=== PATIENT | female | born 1950 | race Caucasian/White ===

== ENCOUNTER 2019-05-30 13:05 | Outpatient (RCR) | payer MEDICARE, MEDICAID, SELFPAY | END 2019-06-15 23:59 | disposition home or self-care (01) | LOC: SPT 13:05 | PROVIDERS: Family Provider Family Medicine; PCP Family Medicine; Referring Provider Family Medicine; Visit Provider Family Medicine | DX: M54.5 Low back pain (principal) | CPT/HCPCS: 97032; 97110; 97161 ==

== ENCOUNTER → 2020-04-23 13:25 | Outpatient (BNVA) | payer MEDICARE, MEDICAID, SELFPAY | PROVIDERS: Family Provider Family Medicine; PCP Family Medicine; Visit Provider Internal Medicine | DX: M10.9 Gout, unspecified (principal); M25.571 Pain in right ankle and joints of right foot; Z11.59 Encounter for screening for other viral diseases; Z79.899 Other long term (current) drug therapy; N18.9 Chronic kidney disease, unspecified; M25.50 Pain in unspecified joint; M85.88 Other specified disorders of bone density and structure, other site; R60.0 Localized edema; M77.31 Calcaneal spur, right foot; M20.11 Hallux valgus (acquired), right foot; D86.9 Sarcoidosis, unspecified | CPT/HCPCS: 36415; 73610; 73620; 80053; 81001; 82306; 82310; 82728; 83540; 83735; 83970; 84100; 84443; 84550; 85025; 85651; 86140; 86431; 86704; 86803; 86812; 87340; 99204; 99205 ==

== ENCOUNTER 2020-04-23 14:21 | Outpatient (CLI) | payer MEDICARE, MEDICAID, SELFPAY ==
--- NOTE | 2020-04-23 14:35 | XR_ITS ---
WS: [id number] ANKLE RIGHT TECHNIQUE: 3 views of the right ankle CLINICAL INFORMATION: M10.9 - Gout, unspecified COMPARISON: None. FINDINGS: Diffuse prominent soft tissue edema. Osteopenia. Normal medial and lateral malleolus. Normal ankle mo rtise. No acute fractures. Plantar and Achilles calcaneal spurring. Vascular calcification. XR/XR ankle RT min 3V* [id number] IMPRESSION: 1. Prominent soft tissue edema. 2. Normal ankle mortise. No acute fractures. 3. Normal medial and lateral malleolus. 4. Vascular calcification. 5. Plantar and Achilles calcaneal spurring.
--- NOTE | 2020-04-23 14:35 | XR_ITS ---
WS: [id number] FOOT RIGHT TECHNIQUE: 2 views of the right foot CLINICAL INFORMATION: M25.50 - Pain in unspecified joint COMPARISON: None. FINDINGS: Osteopenia. Diffuse soft tissue edema. Vascular calcification. Plantar calcaneal spurring. Calcaneal spurring at the Achilles insertion. Hammertoe deformities. Mild IP joint narrowing. Normal metatarsal s. Subchondral cystic change involving the head of the first metatarsal with mild hallux valgus XR/XR foot RT 2V [id number] IMPRESSION: 1. Osteopenia with diffuse soft tissue edema. 2. Plantar and Achilles calcaneal spurring 3. Subchondral cystic change first metatarsal head with mild hallux valgus.
== END 2020-04-23 14:22 | disposition home or self-care (01) ==
LOC: RADWPI 14:27
PROVIDERS: PCP Family Medicine; Visit Provider Internal Medicine
DX: M10.9 Gout, unspecified (principal); M25.50 Pain in unspecified joint; M85.88 Other specified disorders of bone density and structure, other site; R60.0 Localized edema; M25.571 Pain in right ankle and joints of right foot; M77.31 Calcaneal spur, right foot; M20.11 Hallux valgus (acquired), right foot; D86.9 Sarcoidosis, unspecified
CPT/HCPCS: 73610; 73620; 80053; 81001; 81003; 82306; 82310; 82728; 83540; 83735; 83970; 84100; 84443; 84550; 85025; 85651; 86140; 86431; 86704; 86803; 86812; 87340

== ENCOUNTER 2020-08-30 07:39 | Emergency (ER) | payer MEDICARE, MEDICAID, SELFPAY ==
[2020-08-30 07:39] VITALS: BP 124/77; PULSE 103; RESP 18; O2SAT 93; BMI 38.7
--- NOTE | 2020-08-30 07:45 | W.ED.GENADLT ---
HPI - General Adult General: Chief complaint: Extremity Problem,Nontraumatic Stated complaint: SAVAGE FEET SWELLING Time Seen by Provider: 08/30/20 07:45 History of Present Illness: HPI narrative: 70-year-old female presents with bilateral foot pain. Patient reports that she was seen about a week ago due to gout. That she was recently had increase of her allopurinol from 100 mg a day to 200 mg a day. He presents today because she reports it is difficult to stand because of pain in her feet. Patient reports for the last 4 days has been getting worse. She has not seen her primary care provider since it started increasing in pain. Patient has a history of recurrent gout. Patient denies any other systemic complaint Associated symptoms: Deny chest pain, dyspnea, nausea, palpitations or vomiting Review of Systems Const: Denies: fever(s) or chills ENMT: Denies: throat pain Card: Denies: chest pain or palpitations Resp: Denies: dyspnea or productive cough GI: Denies: abdominal pain, nausea or vomiting : Denies: difficulty voiding Musc: Reports: joint warmth and other (see hpi) Skin/Breast: Reports: other (see hpi ) PFSH ED PFSH: Family History Other CAD (coronary artery disease) Diabetes Social History Smoking and tobacco status: never smoked Alcohol intake: never History of recent travel: No Physical Exam Const: COMMON NORMALS: patient oriented x3 and alert GENERAL APPEARANCE: cooperative NUTRITIONAL APPEARANCE: overweight HENMT: COMMON NORMALS: normocephalic and moist oral mucous membranes HEAD & SCALP: normocephalic Resp: COMMON NORMALS: normal respiratory effort, No retractions, No use of accessory muscles and clear to auscultation bilaterally EFFORT & INSPECTION: Yes able to speak in complete sentences AUSCULTATION: clear to auscultation bilaterally Cardio: COMMON NORMALS: regular rate and regular rhythm RATE: regular rate RHYTHM: regular rhythm GI: COMMON NORMALS: Soft to palpation and non-tender PALPATION: Yes Soft to palpation Extremity: NARRATIVE EXTREMITY EXAM: Mild swelling and erythema on the bilateral foot mainly near the great toes consistent with gout Neuro: COMMON NORMALS: patient oriented x3 SENSORIUM/ORIENTATION: Yes alert Psych: COMMON NORMALS: mental status grossly normal and normal affect Skin: NARRATIVE SKIN EXAM: Mild erythema on the bilateral feet mainly on the medial aspect of the great toe Course Vital Signs: Vital signs: Vital Signs Temperature 97.8 F 08/30/20 09:26 Pulse Rate 68 08/30/20 09:26 Respiratory Rate 18 08/30/20 09:26 Blood Pressure 152/91 08/30/20 09:26 Pulse Oximetry 95 08/30/20 09:26 MDM - General Adult MDM Narrative: Medical decision making narrative: Patient symptoms improved significantly following the colchicine. I will discharge her with ibuprofen 800 mg 3 times a day along with prednisone x3 days. I discussed with her, the decrease in her hemoglobin level with her chronic anemia and need to follow-up outpatient for both further evaluation of her anemia and recheck of her gout. Patient stable and will be discharged home Lab Data: Attestation: I reviewed the patient's lab results. Labs: Lab Results 08/30/20 08/30/20 Range/Units 08:05 08:05 WBC 7.6 (4.0-10.0) 10^3/ uL RBC 2.82 L (4.1-5.3) 10^6/u L Hgb 7.4 L (11.5-15.3) g/dL Hct 25.3 L (37.0-47.0) % MCV 89.7 (81-99) fL MCH 26.2 L (28.0-34.0) pg MCHC 29.2 L (30.0-36.0) g/dL RDW 19.3 H (12.1-15.1) % Plt Count 275 (130-400) 10^3/c mm MPV 9.4 (7.4-10.4) fL Neut % (Auto) 72.4 % Lymph % (Auto) 14.6 % [place] % (Auto) 11.0 % Eos % (Auto) 1.0 % Baso % (Auto) 0.5 % Neut # (Auto) 5.51 (1.8-7.7) 10^3/u L Lymph # (Auto) 1.1 (0.8-4.8) 10^3/u L [place] # (Auto) 0.8 (0.2-0.9) 10^3/u L Eos # (Auto) 0.1 (0.0-0.8) 10^3/u L Baso # (Auto) 0.0 (0.0-0.1) 10^3/u L Nucleated RBC % (a uto) 0 % Nucleated RBCs # 0.0 /100WBC Sodium 140 (136-145) mmol/L Potassium 4.4 (3.5-5.1) mmol/L Chloride 105 (98-107) mmol/L Carbon Dioxide 27 (22-29) mmol/L Anion Gap 12.4 (5-19) BUN 31 H (8-23) mg/dL Creatinine 1.1 H (0.5-0.9) mg/dL GFR Calculation Not Reportable Glucose 126 H (65-115) mg/dL Calculated Osmolal ity 298 H (285-295) mOsm/k g Uric Acid 5.1 (2.4-5.7) mg/dL Calcium 7.9 L (8.5-10.5) mg/dL Discharge Plan Discharge Patient Disposition: Home Clinical Impression: Gout Qualifiers: Gout site: toe Gout etiology: unspecified cause Chronicity: chronic Laterality: unspecified laterality Presence of tophus: without tophus Qualified Code(s): M1A.9XX0 - Chronic gout, unspecified, without tophus (tophi) Anemia Qualifiers: Anemia type: unspecified type Qualified Code(s): D64.9 - Anemia, unspecified Condition: Stable Prescriptions: New prednisone 20 mg tablet 40 mg PO DAILY 3 Days Qty: 6 RF: 0 ibuprofen 800 mg tablet 800 mg PO TID Qty: 10 RF: 0 No Action gabapentin 300 mg capsule 300 mg PO TID RF: 0 buspirone 15 mg tablet 15 mg PO DAILY RF: 0 metoprolol succinate 100 mg tablet extended release 24 hr 100 mg PO DAILY RF: 0 lisinopril 40 mg tablet 40 mg PO DAILY RF: 0 lovastatin 20 mg tablet 20 mg PO DAILY RF: 0 aspirin [Adult Aspirin Regimen] 81 mg tablet,delayed release (DR/EC) 81 mg PO DAILY RF: 0 clopidogrel 75 mg tablet 75 mg PO DAILY RF: 0 prednisone 5 mg tablet 5 mg PO DAILY Qty: 30 RF: 0 allopurinol 100 mg tablet 200 mg PO DAILY RF: 0 prednisone 5 mg tablet 5 mg PO DAILY Qty: 30 RF: 0 allopurinol 100 mg tablet 200 mg PO DAILY Qty: 60 RF: 2 colchicine [Colcrys] 0.6 mg tablet See Rx Instructions PO DAILY Qty: 60 RF: 0 cholecalciferol (vitamin D3) 1,250 mcg (50,000 unit) capsule 50,000 unit PO .qweek Qty: 14 RF: 0 Discharge Orders: Discharge ED (Routine); Ordered 08/30/20 Ordered By: Shelton Myles Referrals: Scar Gomez [Primary Care Provider] - Discharge Diet: Usual diet Discharge Activity: Resume usual activity Patient Instructions: Gout, Anemia (ED), Opioid Safety Activity Restrictions/Additional Instructions: Follow-up with your primary care provider in 2 to 3 days for recheck of your gout along with further evaluation of your anemia Coding Level of Care Code ED Supervisor [employer] for Chg Fwd Exam Detailed
[2020-08-30 07:46] VITALS: BP 124/77; PULSE 100; PULSE 106; RESP 20; O2SAT 92
[2020-08-30] MEDS: colchicine 0.6 mg Tablet 1.2 MG PO (08:06)
[2020-08-30] MEDS: predniSONE 20 mg Tablet 40 MG PO (08:06)
[2020-08-30 08:14] LABS: Basophils % 0.5 %; Eosinophils # 0.1 10^3/uL (0.0-0.8); Hematocrit 25.3 % (37.0-47.0); Hemoglobin 7.4 g/dL (11.5-15.3); Lymphocytes # 1.1 10^3/uL (0.8-4.8); Lymphocytes % 14.6 %; Mean Corpuscular HGB Conc 29.2 g/dL (30.0-36.0); Mean Corpuscular Hemoglobin 26.2 pg (28.0-34.0); Mean Corpuscular Volume 89.7 fL (81-99); Mean Platelet Volume 9.4 fL (7.4-10.4); Monocytes # 0.8 10^3/uL (0.2-0.9); Neutrophils # 5.51 10^3/uL (1.8-7.7); Neutrophils % 72.4 %; Nucleated Red Blood Cells % 0 %; Platelet Count 275 10^3/cmm (130-400); Red Blood Count 2.82 10^6/uL (4.1-5.3); Red Cell Distribution Width 19.3 % (12.1-15.1); White Blood Count 7.6 10^3/uL (4.0-10.0)
[2020-08-30 08:41] LABS: Anion Gap 12.4 (5-19); Blood Urea Nitrogen 31 mg/dL (8-23); Calcium 7.9 mg/dL (8.5-10.5); Carbon Dioxide 27 mmol/L (22-29); Chloride 105 mmol/L (98-107); Glucose 126 mg/dL (65-115); Osmolality Calculated 298 mOsm/kg (285-295); Potassium 4.4 mmol/L (3.5-5.1); Sodium 140 mmol/L (136-145); Uric Acid 5.1 mg/dL (2.4-5.7)
[2020-08-30] MEDS: ketorolac 30 mg/mL INJ 15 MG IVP (09:00)
[2020-08-30 09:26] VITALS: BP 152/91; PULSE 68; RESP 18; TEMP 36.6; O2SAT 95
== END 2020-08-30 09:27 | disposition home or self-care (01) ==
PROVIDERS: Emergency Provider Student in an Organized Health Care Education/Training Program; PCP Family Medicine
DX: M1A.9XX0 Chronic gout, unspecified, without tophus (tophi) (principal); D64.9 Anemia, unspecified; Z79.82 Long term (current) use of aspirin; Z79.02 Long term (current) use of antithrombotics/antiplatelets
CPT/HCPCS: 80048; 84550; 85025; 96374; 99283; J1885; J7512

== ENCOUNTER 2020-11-28 13:09 | Inpatient (IN) | payer MEDICARE, MEDICAID, SELFPAY ==
[2020-11-28] VITALS (9 sets, daily range): BP systolic 118–149; BP diastolic 76–102; PULSE 7–104; RESP 17–24; TEMP 36.7; O2SAT 87–98; BMI 38.7
--- NOTE | 2020-11-28 13:35 | ED_ITS ---
HPI - COVID General: Chief Complaint: COVID symptoms Stated Complaint: COVID +; RESP DISTRESS Time Seen by Provider: 11/28/20 13:13 Source: patient and RN notes reviewed Mode of arrival: ambulatory Limitations: no limitations Triage information: Has fever, cough or shortness of breath . Exposure to COVID + person last 14 days History of Present Illness: HPI Narrative: Patient is a 70-year-old female who was diagnosed with COVID-19 4 days ago. Symptoms started 3 days before that, so she has been symptomatic for about 1 week. Symptoms include cough, shortness of breath, chills and body aches. She denies any fever. She was seen at another emergency department 4 days ago and was discharged home on steroids. She says she felt better for about a day but then got significantly worse thereafter. When EMS arrived the patient was hypoxic with oxygen saturation in the mid 80s. She was given beta agonist breathing treatments, and placed on 4 L of oxygen via nasal cannula to bring her oxygen saturation to around 92 to 94% complaint: known COVID positive Prior covid testing: yes, results known COVID 19 common symptoms: positive chills, cough, productive cough, dyspnea, fatigue, body aches and nasal congestion; negative fever(s), non-productive cough, headache(s), loss of sense of smell and/or taste, throat pain, vomiting, diarrhea or chest tightness COVID 19 other sytmptoms: positive requiring oxygen and respiratory distress; negative chest pressure, chest pain, pleuritic pain, cyanosis, lethargy, confusion, new neurological complaints or other concerning symptoms Onset (ago): week(s) (1) Severity: severe Pertinent comorbid conditions: diabetes, hypertension and obesity Treatment prior to arrival: oxygen COVID Results: No Data to Display Review of Systems General: Reports: 10 or more systems reviewed and unremarkable except in HPI and below Const: Reports: chills, body aches and fatigue; Denies: fever(s) ENMT: Reports: nasal congestion; Denies: throat pain Card: Denies: chest pain Resp: Reports: dyspnea and productive cough; Denies: non-productive cough GI: Denies: vomiting or diarrhea Neuro: Denies: headache(s) or confusion [facility] ED PFSH: Medical History ASHD (arteriosclerotic heart disease) COPD (chronic obstructive pulmonary disease) HLD (hyperlipidemia) HTN (hypertension) Non-insulin dependent diabetes mellitus Surgical History Hx of eye surgery Hx of gastric bypass Hx of heart artery stent Hx of tubal ligation Family History Mother CAD (coronary artery disease) Diabetes Father CAD (coronary artery disease) Diabetes Social History Smoking and tobacco status: never smoked Alcohol intake: never History of recent travel: No Physical Exam Const: COMMON NORMALS: average body habitus, patient oriented x3, no limi tations, healthy appearing, alert and well nourished GENERAL APPEARANCE: in distress HENMT: COMMON NORMALS: normocephalic, atraumatic and moist oral mucous membranes HEAD & SCALP: normocephalic and atraumatic Neck/C-Spine: COMMON NORMALS: no meningeal signs and no JVD Resp: COMMON NORMALS: normal respiratory effort, No retractions, No use of accessory muscles and percussion normal EFFORT & INSPECTION: Yes tachypneic AUSCULTATION: rales on the left PERCUSSION: percussion normal Cardio: COMMON NORMALS: no JVD, regular rate, regular rhythm, S1 normal heart sound present, S2 normal heart sound present, No gallops present (Cardio), No clicks present (Cardio), No murmurs present (Cardio), No rub (Cardio) and Peripheral pulses 2+ throughout RATE: regular rate RHYTHM: regular rhythm HEART SOUNDS: S1 normal heart sound present and S2 normal heart sound present PERIPHERAL PULSES: Peripheral pulses 2+ throughout GI: COMMON NORMALS: Normal to inspection, nondistended, normoactive bowel sounds present, Soft to palpation, non-tender, No hepatosplenomegaly present, no masses and no bruits PALPATION: Yes Soft to palpation and Yes No hepatosplenomegaly present Extremity: COMMON NORMALS: normal to inspection, full ROM, capillary refill normal, no calf tenderness and no pedal edema Neuro: COMMON NORMALS: patient oriented x3 SENSORIUM/ORIENTATION: Yes alert MENINGEAL SIGNS: Yes no meningeal signs Skin: COMMON NORMALS: no rashes or lesions noted, no wounds, turgor normal, no jaundice, no petechiae and no mottling GENERAL SKIN EXAM: no rashes or lesions noted and turgor normal Course Consultations: Consultation #1: Discussed the patient with Dr. Coleman, hospitalist and he kindly accepted patient to his service. Time: 17:52 Vital Signs: Vital signs: Vital Signs Temperature 98.1 F 11/28/20 19:48 Pulse Rate 97 11/28/20 19:48 Respiratory Rate 20 H 11/28/20 19:48 Blood Pressure 118/85 11/28/20 19:48 Pulse Oximetry 93 11/28/20 19:48 MDM - COVID MDM Narrative: Medical decision making narrative: This 70-year-old female patient was diagnosed with COVID-19 4 days ago. Symptoms started 3 days before that. She presents today in respiratory distress and was significantly hypoxic when the ambulance arrived at her place of residence. She required oxygen at 4 L/min to maintain her saturations in the low to mid 90s. CT C of her lungs was negative for pulmonary embolism but consistent with Covid pneumonia. She is admitted to the hospital for further evaluation and management. Medical Records: Attestation: I reviewed the patient's medical records. Lab Data: Attestation: I reviewed the patient's lab results. Labs: Lab Results 11/28/20 11/28/20 11/28/20 Range/Units 12:30 12:30 12:30 WBC 4.2 (4.0-10.0) 10^3/ uL RBC 3.85 L (4.1-5.3) 10^6/u L Hgb 9.9 L (11.5-15.3) g/dL Hct 32.5 L (37.0-47.0) % MCV 84.4 (81-99) fl MCH 25.7 L (28.0-34.0) pg MCHC 30.5 (30.0-36.0) g/dL RDW 17.7 H (12.1-15.1) % Plt Count 183 (130-400) 10^3/c mm MPV 9.9 (7.4-10.4) fL Neut % (Auto) 88.3 % Lymph % (Auto) 7.6 % [place] % (Auto) 3.6 % Eos % (Auto) 0.0 % Baso % (Auto) 0.0 % Neut # (Auto) 3.71 (1.8-7.7) 10^3/u L Lymph # (Auto) 0.3 L (0.8-4.8) 10^3/u L [place] # (Auto) 0.2 (0.2-0.9) 10^3/u L Eos # (Auto) 0.0 (0.0-0.8) 10^3/u L Baso # (Auto) 0.0 (0.0-0.1) 10^3/u L Nucleated RBC % (a uto) 0 % Nucleated RBCs # 0.0 /100WBC Fibrinogen 425 (174-498) mg/dL D-Dimer 1.42 H (0-0.59) ug/mIFE U Specimen Type Sample Site ABG pH (7.35-7.45) ABG pCO2 (35-45) mmHg ABG pO2 (80.0-100.0) mmH g ABG HCO3 (22-26) mmol/L ABG Base Excess (-2.0-2.0) mmol/ L Jordan Test Hematocrit (37-47) % O2 Delivery Device O2 Liters/Min % FiO2 % Production Support Consultant ID Sodium 136 (136-145) mmol/L Potassium 3.9 (3.5-5.1) mmol/L Chloride 100 (98-107) mmol/L Carbon Dioxide 25 (22-29) mmol/L Anion Gap 14.9 (5-19) BUN 24 H (8-23) mg/dL Creatinine 0.9 (0.5-0.9) mg/dL GFR Calculation Not Reportable Glucose 86 (65-115) mg/dL Calculated Osmolal ity 285 (285-295) mOsm/k g Lactic Acid (0.5-2.2) mmol/L Calcium 7.7 L (8.5-10.5) mg/dL Total Bilirubin 0.2 (0.15-1.2) mg/dL AST 32 (0-32) U/L ALT 12 (0-33) U/L Alkaline Phosphata se 65 (35-105) IU/L Creatine Kinase 113 (26-192) U/L C-Reactive Protein 34.0 H (0.0-4.9) mg/L Total Protein 6.3 L (6.6-8.7) g/dL Albumin 3.1 L (3.5-5.2) g/dL Globulin 3.2 (1.3-4.6) g/dL Procalcitonin 0.04 (0-0.5) ng/mL 11/28/20 11/28/20 Range/Units 13:47 16:18 WBC (4.0-10.0) 10^3/ uL RBC (4.1-5.3) 10^6/u L Hgb (11.5-15.3) g/dL Hct (37.0-47.0) % MCV (81-99) fl MCH (28.0-34.0) pg MCHC (30.0-36.0) g/dL RDW (12.1-15.1) % Plt Count (130-400) 10^3/c mm MPV (7.4-10.4) fL Neut % (Auto) % Lymph % (Auto) % [place] % (Auto) % Eos % (Auto) % Baso % (Auto) % Neut # (Auto) (1.8-7.7) 10^3/u L Lymph # (Auto) (0.8-4.8) 10^3/u L [place] # (Auto) (0.2-0.9) 10^3/u L Eos # (Auto) (0.0-0.8) 10^3/u L Baso # (Auto) (0.0-0.1) 10^3/u L Nucleated RBC % (a uto) % Nucleated RBCs # /100WBC Fibrinogen (174-498) mg/dL D-Dimer (0-0.59) ug/mIFE U Specimen Type Arterial Sample Site Femoral, right ABG pH 7.42 (7.35-7.45) ABG pCO2 41.4 (35-45) mmHg ABG pO2 71.7 L (80.0-100.0) mmH g ABG HCO3 26.6 H (22-26) mmol/L ABG Base Excess 1.8 (-2.0-2.0) mmol/ L Jordan Test Pos Hematocrit 31.0 L (37-47) % O2 Delivery Device Nc O2 Liters/Min 3.0 % FiO2 32.0 % Production Support Consultant ID Ed Sodium (136-145) mmol/L Potassium (3.5-5.1) mmol/L Chloride (98-107) mmol/L Carbon Dioxide (22-29) mmol/L Anion Gap (5-19) BUN (8-23) mg/dL Creatinine (0.5-0.9) mg/dL GFR Calculation Glucose (65-115) mg/dL Calculated Osmolal ity (285-295) mOsm/k g Lactic Acid 2.2 (0.5-2.2) mmol/L Calcium (8.5-10.5) mg/dL Total Bilirubin (0.15-1.2) mg/dL AST (0-32) U/L ALT (0-33) U/L Alkaline Phosphata se (35-105) IU/L Creatine Kinase (26-192) U/L C-Reactive Protein (0.0-4.9) mg/L Total Protein (6.6-8.7) g/dL Albumin (3.5-5.2) g/dL Globulin (1.3-4.6) g/dL Procalcitonin (0-0.5) ng/mL Imaging Data: CTA Chest: Attestation: I personally reviewed and interpreted this imaging study as follows: Radiologist's impression: [address] [id number] Scan ReportSigned Patient: Lyndsey Franco #: [id number]: 9Acct#:[id number]/Sex: 70 / FADM Date: 11/28/20Loc: ERRoom/Bed:Attending Dr: Ordering Provider/Ordering MD: Bee Oconnor MD, [facility] [place] of Service: 11/28/20 Procedure(s): CT angio chest PE protcl [id number] Accession Number(s): [id number] Report Number: [id number] PROCEDURE INFORMATION: Exam: CTA Chest With Contrast Exam date and time: 11/28/2020 3:52 PM Age: 70 years old Clinical indication: Shortness of breath; Additional info: Covid+, SOB TECHNIQUE: Imaging protocol: Computed tomographic angiography of the chest with contrast. 3D rendering (Not supervised by radiologist): MIP and/or 3D reconstructed images were created by the technologist. Radiation optimization: All CT scans at this facility use at least one of these dose optimization techniques: automated exposure control; mA and/or kV adjustment per patient size (includes targeted exams where dose is matched to clinical indication); or iterative reconstruction. Contrast material: OMNIPAQUE 350; Contrast volume: 95 ml; Contrast route: INTRAVENOUS (IV); COMPARISON: CTA Chest-Pulmonary Emb [id number] 05/02/2016 6:41 PM RADIATION DOSE METRICS: Total DLP (mGy-cm): 584.78 FINDINGS: Pulmonary arteries: Enlargement of the central pulmonary arteries. Findings may suggest pulmonary hypertension. No filling defects in the pulmonary arteries to suggest pulmonary embolism. Aorta: Mild atherosclerotic changes in the visualized arteries. No evidence for aortic aneurysm. Evaluation for aortic dissection is limited due to the phase of contrast-enhancement. Lungs: Tracheobronchial structures are patent. Multiple, bilateral areas of ground-glass opacification and crazy paving . The findings are commonly seen with COVID-19 pneumonia. No pulmonary parenchymal nodules or masses. Pleural spaces: Small bilateral pleural effusions. No pneumothorax. Heart: 3.9 x 3.4 cm pericardial cyst at the right cardiophrenic angle. Stable mild enlargement of the heart. Stable calcification of the mitral valve annulus. Stable moderate atherosclerotic calcification in the coronary arteries. Mediastinal space: The esophagus is unremarkable. No mediastinal hematoma. No pneumomediastinum. Lymph nodes: No lymphadenopathy. Liver: Mildly nodular contour of the under surface of the liver suspicious for mild cirrhosis. Pancreas: The visualized pancreas is unremarkable. No pancreatic ductal dilatation. Spleen: The spleen is unremarkable. Adrenal glands: The right and left adrenal glands are unremarkable. Kidneys and ureters: The visualized right and left kidneys are unremarkable. Stomach and bowel: Patient has had a previous gastric bypass. Bones/joints: Degenerative changes in the spine and shoulders. Mild scoliosis in the visualized spine. Soft tissues: No acute abnormality in the extrathoracic soft tissues. CT/CT angio chest PE protcl [id number] IMPRESSION: 1. Multiple, bilateral areas of ground-glass opacification and crazy paving . The findings are commonly seen with COVID-19 pneumonia. Per report, the patient is COVID-19 positive. Recommend followup chest imaging to insure resolution of these findings. 2. No evidence for pulmonary embolism. 3. Mildly nodular contour of the under surface of the liver suspicious for mild cirrhosis. 4. Small bilateral pleural effusions. 5. Incidental/nonacute findings are listed in the report. Radiation Dose CTDIVOL = (mGy): DLP = 584.78 (mGy-cm) Dictated By:Bina Smith MDSigned By:Bina Smith MDSigned Date/Time:11/28/201735DD/ 33 COVID Results: No Data to Display Discharge Plan Discharge Patient Disposition: Admitted As Inpatient Admit Provider: Thomas Coleman Clinical Impression: Pneumonia due to COVID-19 virus, Acute respiratory failure Condition: Stable Coding Level of Care Code ED High School Teacher for Paulette Cartagena
[2020-11-28 13:55] LABS: ABG PCO2 41.4 mmHg (35-45); ABG PH Result 7.42 (7.35-7.45); Base Excess ABG 1.8 mmol/L (-2.0-2.0); Blood Gas Allen Test Pos; Blood Gas Sample Site Femoral, right; Blood Gas Sample Type Arterial; HCO3 ABG 26.6 mmol/L (22-26); PO2 ABG 71.7 mmHg (80.0-100.0)
[2020-11-28 13:56] LABS: Blood Gas Operator Identificat ED; Oxygen Device NC
[2020-11-28 14:23] LABS: Hematocrit 32.5 % (37.0-47.0); Hemoglobin 9.9 g/dL (11.5-15.3); Lymphocytes # 0.3 10^3/uL (0.8-4.8); Lymphocytes % 7.6 %; Mean Corpuscular HGB Conc 30.5 g/dL (30.0-36.0); Mean Corpuscular Hemoglobin 25.7 pg (28.0-34.0); Mean Corpuscular Volume 84.4 fl (81-99); Mean Platelet Volume 9.9 fL (7.4-10.4); Monocytes # 0.2 10^3/uL (0.2-0.9); Monocytes % 3.6 %; Neutrophils # 3.71 10^3/uL (1.8-7.7); Neutrophils % 88.3 %; Nucleated Red Blood Cells % 0 %; Platelet Count 183 10^3/cmm (130-400); Red Blood Count 3.85 10^6/uL (4.1-5.3); Red Cell Distribution Width 17.7 % (12.1-15.1); White Blood Count 4.2 10^3/uL (4.0-10.0)
[2020-11-28 14:42] LABS: Fibrinogen 425 mg/dL (174-498)
[2020-11-28 14:44] LABS: D Dimer 1.42 ug/mIFEU (0-0.59)
[2020-11-28 14:56] LABS: Alanine Aminotransferase 12 U/L (0-33); Albumin Level 3.1 g/dL (3.5-5.2); Alkaline Phosphatase 65 IU/L (35-105); Anion Gap 14.9 (5-19); Aspartate Amino Transferase 32 U/L (0-32); Blood Urea Nitrogen 24 mg/dL (8-23); Calcium 7.7 mg/dL (8.5-10.5); Carbon Dioxide 25 mmol/L (22-29); Chloride 100 mmol/L (98-107); Creatine Phosphokinase 113 U/L (26-192); Globulin 3.2 g/dL (1.3-4.6); Glucose 86 mg/dL (65-115); Osmolality Calculated 285 mOsm/kg (285-295); Potassium 3.9 mmol/L (3.5-5.1); Sodium 136 mmol/L (136-145); Total Bilirubin 0.2 mg/dL (0.15-1.2); Total Protein 6.3 g/dL (6.6-8.7)
[2020-11-28 14:59] LABS: Procalcitonin 0.04 ng/mL (0-0.5)
--- NOTE | 2020-11-28 15:52 | CTR_ITS ---
PROCEDURE INFORMATION: Exam: CTA Chest With Contrast Exam date and time: 11/28/2020 3:52 PM Age: 70 years old Clinical indication: Shortness of breath; Additional info: Covid+, SOB TECHNIQUE: Imaging protocol: Computed tomographic angiography of the chest with contrast. 3D rendering (Not supervised by radiologist): MIP and/or 3D reconstructed images were created by the technologist. Radiation optimization: All CT scans at this facility use at least one of these dose optimization techniques: automated exposure control; mA and/or kV adjustment per patient size (includes targeted exams where dose is matched to clinical indication); or iterative reconstruction. Contrast material: OMNIPAQUE 350; Contrast volume: 95 ml; Contrast route: INTRAVENOUS (IV); COMPARISON: CTA Chest-Pulmonary Emb [id number] 05/02/2016 6:41 PM RADIATION DOSE METRICS: Total DLP (mGy-cm): 584.78 FINDINGS: Pulmonary arteries: Enlargement of the central pulmonary arteries. Findings may suggest pulmonary hypertension. No filling defects in the pulmonary arteries to suggest pulmonary embolism. Aorta: Mild atherosclerotic changes in the visualized arteries. No evidence for aortic aneurysm. Evaluation for aortic dissection is limited due to the phase of contrast-enhancement. Lungs: Tracheobronchial structures are patent. Multiple, bilateral areas of ground-glass opacification and crazy paving . The findings are commonly seen with COVID-19 pneumonia. No pulmonary parenchymal nodules or masses. Pleural spaces: Small bilateral pleural effusions. No pneumothorax. Heart: 3.9 x 3.4 cm pericardial cyst at the right cardiophrenic angle. Stable mild enlargement of the heart. Stable calcification of the mitral valve annulus. Stable moderate atherosclerotic calcification in the coronary arteries. Mediastinal space: The esophagus is unremarkable. No mediastinal hematoma. No pneumomediastinum. Lymph nodes: No lymphadenopathy. Liver: Mildly nodular contour of the under surface of the liver suspicious for mild cirrhosis. Pancreas: The visualized pancreas is unremarkable. No pancreatic ductal dilatation. Spleen: The spleen is unremarkable. Adrenal glands: The right and left adrenal glands are unremarkable. Kidneys and ureters: The visualized right and left kidneys are unremarkable. Stomach and bowel: Patient has had a previous gastric bypass. Bones/joints: Degenerative changes in the spine and shoulders. Mild scoliosis in the visualized spine. Soft tissues: No acute abnormality in the extrathoracic soft tissues. CT/CT angio chest PE protcl [id number] IMPRESSION: 1. Multiple, bilateral areas of ground-glass opacification and crazy paving . The findings are commonly seen with COVID-19 pneumonia. Per report, the patient is COVID-19 positive. Recommend followup chest imaging to insure resolution of these findings. 2. No evidence for pulmonary embolism. 3. Mildly nodular contour of the under surface of the liver suspicious for mild cirrhosis. 4. Small bilateral pleural effusions. 5. Incidental/nonacute findings are listed in the report. Radiation Dose CTDIVOL = (mGy): DLP = 584.78 (mGy-cm)
[2020-11-28 16:48] LABS: Lactic Sepsis W/Reflex 2.2 mmol/L (0.5-2.2)
[2020-11-28] MEDS: iohexol 350 mg/mL 100 mL Btl IV (16:51)
[2020-11-28 18:09] LABS: Reflex Lactate Order REFLEX LACTIC ORDERD
[2020-11-28] MEDS: dexamethasone 10 mg/mL INJ 6 MG IVP (18:33)
[2020-11-28] MEDS: cefTRIAXone 2,000 MG in sodium chloride 0.9% (plus) 50 ML 100 MG IV (18:33)
[2020-11-28] MEDS: azithromycin 500 MG in sodium chloride 0.9% 250 ML 250 MG IV (18:34)
--- NOTE | 2020-11-28 18:46 | PM.HP ---
Providers/Chief Complaint Primary Care Provider: Scar Gomez Chief Complaint: COVID +; RESP DISTRESS History of Present Illness Lyndsey Franco is a 70 year old female with a past medical history of CAD status post stenting x1, history of COPD, history of secondhand smoke exposure, CKD, hyperlipidemia, gout, peripheral neuropathy, vkk-xolbdub-coxysvzib type 2 diabetes mellitus, who presents to [facility] due to complaints of shortness of breath. Patient tells me that about a week ago, she started developing shortness of breath, just not feeling well, she tells that she felt sick as a dog, intermittent fevers, chills, no nausea, no vomiting, no diarrhea, she presented to her primary care provider roughly 2 days ago, she tested positive for Covid. Since then she has been developing more progressive shortness of breath, fatigue, malaise, that she decided to come to the emergency room. In the emergency room, she was found to be hypoxic requiring 4 L oxygen, CTA of the chest showed groundglass opacities in both lungs, WBC 4.2, CRP, 34, pro-Tripp 0.04 Review of Systems Const: Reports: fever(s), chills, fatigue and malaise Eyes: Denies: change in vision or blurry vision ENMT: Denies: nasal congestion Card: Denies: chest pain, palpitations or lightheadedness Resp: Reports: dyspnea and non-productive cough; Denies: productive cough or wheezing GI: Denies: abdominal pain, nausea, vomiting, hematemesis, diarrhea, constipation, hematochezia or melena : Denies: flank pain, dysuria or urinary frequency Musc: Denies: neck pain or back pain Skin/Breast: Denies: rash Neuro: Denies: headache(s), dizziness or vertigo Psych: Denies: anxiety or depression Endo: Denies: polyuria or polydipsia Medications/Allergies Home Medications Medication Instructions Recorded Confirmed Last Taken Type aspirin 81 mg tablet,delayed 81 mg PO DAILY 04/23/20 11/28/20 11/27/20 History release buspirone 15 mg tablet 15 mg PO BID PRN tab 04/23/20 11/28/20 Unknown History clopidogrel 75 mg tablet 75 mg PO DAILY 04/23/20 11/28/20 11/27/20 History lisinopril 40 mg tablet 40 mg PO DAILY 04/23/20 11/28/20 11/27/20 History lovastatin 20 mg tablet 20 mg PO DAILY 04/23/20 11/28/20 11/27/20 History allopurinol 100 mg tablet 100 mg PO BID tab 05/28/20 11/28/20 11/27/20 History albuterol sulfate 2 puff INHALATION Q6H PRN 11/28/20 11/28/20 Unknown History alprazolam 0.5 mg PO DAILY PRN 11/28/20 11/28/20 Unknown History cholecalciferol (vitamin D3) 50,000 unit PO Q7D 11/28/20 11/28/20 Unknown History duloxetine 60 mg PO BID 11/28/20 11/28/20 11/27/20 History gabapentin 400 mg PO TID 11/28/20 11/28/20 11/27/20 History ibuprofen 800 mg PO TID PRN 11/28/20 11/28/20 Unknown History metformin 500 mg PO DAILY 11/28/20 11/28/20 11/27/20 History metoprolol succinate 50 mg PO BID 11/28/20 11/28/20 11/27/20 History prednisone 20 mg PO BID 11/28/20 11/28/20 11/27/20 History trazodone 50 mg PO BEDTIME 11/28/20 11/28/20 11/27/20 History Allergies Allergy/AdvReac Type Severity Reaction Status Date / Time shrimp Allergy ALGY-Swell Verified 08/30/20 07:47 Lip/Tongue/Throat PFSH Acute PFSH: Medical History (Updated 11/28/20 @ 18:55 by Thomas Coleman MD) ASHD (arteriosclerotic heart disease) COPD (chronic obstructive pulmonary disease) HLD (hyperlipidemia) HTN (hypertension) Non-insulin dependent diabetes mellitus Surgical History Hx of eye surgery Hx of gastric bypass Hx of heart artery stent Hx of tubal ligation Family History (Updated 11/28/20 @ 18:53 by Thomas Coleman MD) Mother CAD (coronary artery disease) Diabetes Father CAD (coronary artery disease) Diabetes Social History Smoking and tobacco status: never smoked Alcohol intake: never History of recent travel: No Vitals/I&O/Wt Last Vital Signs Temp 98.1 F 11/28/20 13:23 Pulse 102 H 11/28/20 16:00 Resp 22 H 11/28/20 16:00 BP 145/87 11/28/20 16:00 Pulse Ox 87 L 11/28/20 16:00 Weight last 48 hrs Weight 108.862 kg Physical Exam Const: COMMON NORMALS: no acute distress and patient oriented x3 HENMT: COMMON NORMALS: normocephalic HEAD & SCALP: normocephalic Eye: COMMON NORMALS: Equal, round and reactive pupils present and EOMs intact bilaterally GENERAL EYE: appearance normal, both eyes and all related structures PUPIL: Yes Equal, round and reactive pupils present Neck/C-Spine: COMMON NORMALS: full ROM and no lymphadenopathy THYROID: Thyroid normal Lymph: LYMPHATIC: no lymphadenopathy noted Resp: COMMON NORMALS: normal respiratory effort, No retractions, No use of accessory muscles and clear to auscultation bilaterally AUSCULTATION: wheezes Cardio: COMMON NORMALS: regular rate, regular rhythm, S1 normal heart sound present, S2 normal heart sound present, No gallops present (Cardio), No clicks present (Cardio) and No murmurs present (Cardio) RATE: regular rate RHYTHM: regular rhythm HEART SOUNDS: S1 normal heart sound present and S2 normal heart sound present GI: COMMON NORMALS: Normal to inspection, nondistended, normoactive bowel sounds present, Soft to palpation and non-tender Extremity: COMMON NORMALS: no pedal edema Neuro: COMMON NORMALS: patient oriented x3, CN's II-XII intact bilaterally and moves all extremities Psych: THOUGHT PROCESS: Normal thought process present Data : 11/28/20 12:30 11/28/20 12:30 A&P Assessment and plan (1) Pneumonia due to COVID-19 virus: Plan -Admit to general medical floors -Oxygen therapy protocol -Monitor respiratory status closely -Confirm Covid PCR, rapid Covid -Inflammatory markers, pro-Tripp, CRP, BNP, ferritin -Remdesivir day 1/ 5 -Decadron 6 mg IV push daily -Low-dose sliding scale -Rocephin, azithromycin -Vitamin C, zinc, vitamin D - albuterol, budesonide -Sputum cultures, blood cultures, urine bacterial antigens -Continue aspirin, Plavix -Protonix -Monitor for fluid overload, hold off on cardiac echo -Monitor renal function closely -Full code -Lovenox for DVT prophylaxis Status: Acute (2) ASHD (arteriosclerotic heart disease): Status: Acute (3) CKD (chronic kidney disease): Status: Acute (4) COPD (chronic obstructive pulmonary disease): Status: Acute (5) HLD (hyperlipidemia): Status: Acute (6) HTN (hypertension): Status: Acute (7) Non-insulin dependent diabetes mellitus: Status: Acute Attestations Medical Necessity Statement*: Patient requires hospitalization, inpatient, greater than 2 midnights, for COVID-19 pneumonia Coding Level of Care Code Acute Color Artist for [employer] [facility] Diagnoses Pneumonia due to COVID-19 virus U07.1; J12.82 ASHD (arteriosclerotic heart disease) I25.10 CKD (chronic kidney disease) N18.9 COPD (chronic obstructive pulmonary disease) J44.9 HLD (hyperlipidemia) E78.5 HTN (hypertension) I10 Non-insulin dependent diabetes mellitus
[2020-11-28 19:03] LABS: Troponin(5th) Baseline 25 ng/L (0-10)
[2020-11-28 19:05] LABS: Lactic Acid level (Lactate) 1.3 mmol/L (0.5-2.2)
--- NOTE | 2020-11-28 19:56 | ECG_ITS ---
[facility] Test Date: 2020-11-28 Pat Name: Lyndsey Franco Department: Room: 203 Gender: Female Aircraft Design Engineer: : [id number] Requested By: Bee Oconnor I Order Number: [id number] Angeli MD: Delmis Camilo M.D. Measurements Intervals [place] Rate: 80 P: SC: QRS: -18 QRSD: 108 T: 53 QT: 381 QTc: 441 Interpretive Statements ATRIAL FIBRILLATION SEPTAL MYOCARDIAL INFARCTION , PROBABLY OLD [40+ ms Q WAVE IN V1/V2] Compared to ECG 07/09/2017 14:25:51 Myocardial infarct finding now present T-wave abnormality no longer present Possible ischemia no longer present Electronically Signed On 11-29-2020 16:34:15 CDT by Delmis Camilo M.D. [id number]
[2020-11-28] MEDS: gabapentin 400 mg Capsule PO (20:39)
[2020-11-28] MEDS: trazodone 50 mg Tablet PO (20:39)
[2020-11-28] MEDS: pantoprazole 40 mg SDV IVP (20:39)
[2020-11-28] MEDS: remdesivir 200 MG in sodium chloride 0.9% (100 ml) 100 ML 100 MG IV (20:41)
[2020-11-28] MEDS: enoxaparin 40 mg/0.4 mL Syringe SUBCUT (20:44)
[2020-11-28 21:04] LABS: Troponin 5 2HR 22.37 ng/L (0-10); Troponin 5 2HR Delta -2.63 ABS# (0-10)
[2020-11-28 21:11] LABS: Thyroid Stimulating Hormone 0.28 uIU/mL (0.27-4.20)
[2020-11-28 21:44] LABS: Glucose Point of Care 268 mg/dL (70-110)
[2020-11-28] MEDS: budesonide 0.5 mg/2 mL Neb INHALATION (22:27)
[2020-11-28] MEDS: albuterol 8 gm MDI 2 PUFF INHALATION (22:27)
--- NOTE | 2020-11-28 23:56 | ECG_ITS ---
[facility] Test Date: 2020-12-01 Pat Name: Lyndsey Franco Department: Room: 203 Gender: Female Inventory Administrator: : [id number] Requested By: Bee Oconnor I Order Number: [id number] Angeli MD: Hanna Valdez M.D. Measurements Intervals [place] Rate: 74 P: 13 WV: 158 QRS: 4 QRSD: 82 T: 10 QT: 380 QTc: 424 Interpretive Statements SINUS RHYTHM LOW QRS VOLTAGE IN PRECORDIAL LEADS [QRS DEFLECTION < 1.0 mV IN CHEST LEADS] POSSIBLE ANTERIOR MYOCARDIAL INFARCTION , OF INDETERMINATE AGE [30 ms Q WAVE IN V3/V4, OR R < 0.2 mV IN V4] Compared to ECG 11/28/2020 22:28:08 Low QRS voltage now present Atrial fibrillation no longer present Myocardial infarct finding still present Electronically Signed On 12-07-2020 13:28:06 CDT by Hanna Valdez M.D. [id number]
[2020-11-29] VITALS (12 sets, daily range): BP systolic 139–160; BP diastolic 89–119; PULSE 63–95; RESP 14–24; TEMP 36.6–37.1; O2SAT 90–96
[2020-11-29 01:04] LABS: Troponin 5 6HR 20.29 ng/L (0-10)
[2020-11-29 01:06] LABS: Troponin 5 6HR Delta -4.71 ng/L (0-12)
[2020-11-29 06:02] LABS: ABG PCO2 45.9 mmHg (35-45); ABG PH Result 7.38 (7.35-7.45); Arterial Blood Gas Hematocrit 28.5 % (37-47); Base Excess ABG 1.9 mmol/L (-2.0-2.0); Blood Gas Allen Test Pos; Blood Gas Sample Site Radial, left; Blood Gas Sample Type Arterial; HCO3 ABG 27.4 mmol/L (22-26); Oxygen Device NC; PO2 ABG 63.4 mmHg (80.0-100.0)
[2020-11-29 06:30] LABS: Hematocrit 31.9 % (37.0-47.0); Hemoglobin 9.5 g/dL (11.5-15.3); Lymphocytes # 0.2 10^3/uL (0.8-4.8); Lymphocytes % 8.3 %; Mean Corpuscular HGB Conc 29.8 g/dL (30.0-36.0); Mean Corpuscular Hemoglobin 25.5 pg (28.0-34.0); Mean Corpuscular Volume 85.8 fl (81-99); Mean Platelet Volume 9.8 fL (7.4-10.4); Monocytes # 0.1 10^3/uL (0.2-0.9); Monocytes % 6.9 %; Neutrophils # 1.72 10^3/uL (1.8-7.7); Neutrophils % 84.3 %; Nucleated Red Blood Cells % 0 %; Platelet Count 156 10^3/cmm (130-400); Red Blood Count 3.72 10^6/uL (4.1-5.3); Red Cell Distribution Width 17.9 % (12.1-15.1)
[2020-11-29 06:46] LABS: Glucose Point of Care 211 mg/dL (70-110)
[2020-11-29 06:49] LABS: INR 1.13 (0.8-1.2)
--- NOTE | 2020-11-29 07:00 | XRR_ITS ---
PROCEDURE INFORMATION: Exam: XR Chest Exam date and time: 11/29/2020 7:00 AM Age: 70 years old Clinical indication: Shortness of breath; Patient HX: Covid+ SOB TECHNIQUE: Imaging protocol: XR of the chest. Views: 1 view. COMPARISON: CT angio chest PE protcl [id number] 11/28/2020 4:43 PM FINDINGS: Lungs: Continued patchy increased density in both lungs. Pleural spaces: Still no apparent pneumothorax. No current visualization of the previously-seen pleural effusions. Heart/Mediastinum: Continued cardiomegaly. Bones/joints: No apparent acute bony disease. XR/XR chest 1V portable [id number] IMPRESSION: No significant change in the patchy bilateral lung disease. Continued cardiomegaly.
[2020-11-29 07:16] LABS: Alanine Aminotransferase 11 U/L (0-33); Albumin Level 2.8 g/dL (3.5-5.2); Alkaline Phosphatase 56 IU/L (35-105); Anion Gap 14.1 (5-19); Aspartate Amino Transferase 30 U/L (0-32); Blood Urea Nitrogen 23 mg/dL (8-23); Calcium 7.3 mg/dL (8.5-10.5); Carbon Dioxide 26 mmol/L (22-29); Chloride 103 mmol/L (98-107); Glucose 228 mg/dL (65-115); Magnesium 1.8 mg/dL (1.7-2.3); Osmolality Calculated 299 mOsm/kg (285-295); Phosphorus 3.3 mg/dL (2.5-4.5); Potassium 4.1 mmol/L (3.5-5.1); Sodium 139 mmol/L (136-145); Total Bilirubin 0.2 mg/dL (0.15-1.2); Total Protein 5.8 g/dL (6.6-8.7)
[2020-11-29] MEDS: budesonide 0.5 mg/2 mL Neb INHALATION ×2 (09:30→19:19)
[2020-11-29] MEDS: gabapentin 400 mg Capsule PO ×3 (09:35→20:33)
[2020-11-29] MEDS: clopidogrel 75 mg Tablet PO (09:35)
[2020-11-29] MEDS: metoprolol succinate ER (24 HR) 50 mg Tablet PO ×2 (09:35→18:20)
[2020-11-29] MEDS: ascorbic acid 500 mg Tablet PO ×2 (09:35→18:20)
[2020-11-29] MEDS: allopurinol 100 mg Tablet PO ×2 (09:35→18:20)
[2020-11-29] MEDS: aspirin 81 mg EC Tablet PO (09:35)
[2020-11-29] MEDS: atorvastatin 40 mg Tablet 20 MG PO (09:35)
[2020-11-29] MEDS: zinc gluconate 50 mg Tablet PO (09:35)
[2020-11-29] MEDS: duloxetine 60 mg Capsule PO ×2 (09:35→18:20)
[2020-11-29 09:44] LABS: NT Pro B Type Natriuretic Pept 2282 pg/mL (0-125); Procalcitonin 0.07 ng/mL (0-0.5)
[2020-11-29 09:55] LABS: Creatine Phosphokinase 92 U/L (26-192); Ferritin 491 ng/mL (15-150)
[2020-11-29 13:17] LABS: Glucose Point of Care 219 mg/dL (70-110)
--- NOTE | 2020-11-29 13:22 | PC.NURSE ---
SENIOR GOVERNMENT PROGRAM ANALYST'S COMPUTER SHUT DOWN AND DID NOT SAVE ANY SCANS OF MEDS ON THIS PT. SENIOR GOVERNMENT PROGRAM ANALYST IS MANUALLY ENTERING THE BARCODE.
--- NOTE | 2020-11-29 13:33 | P.PN_ITS ---
Subjective Subjective: Interval history: This morning patient was seen, she is on 4 L oxygen, denying any shortness of breath, but has a cough, no fevers overnight Vitals/I&O/Wt Last Vital Signs Temp 98.7 F 11/29/20 11:18 Pulse 76 11/29/20 11:18 Resp 18 11/29/20 11:18 BP 140/89 11/29/20 11:18 Pulse Ox 92 11/29/20 11:18 11/28/20 11/29/20 11/29/20 22:59 06:59 14:59 Intake Total 350 / 350 240 / 590 Balance 350 / 350 240 / 590 Weight last 48 hrs Weight 108.862 kg Weight 108.862 kg Physical Exam Const: COMMON NORMALS: no acute distress and patient oriented x3 Resp: COMMON NORMALS: normal respiratory effort, No retractions, No use of accessory muscles and clear to auscultation bilaterally AUSCULTATION: clear to auscultation bilaterally Cardio: COMMON NORMALS: regular rate, regular rhythm, S1 normal heart sound present and S2 normal heart sound present RATE: regular rate RHYTHM: regular rhythm HEART SOUNDS: S1 normal heart sound present and S2 normal heart sound present GI: COMMON NORMALS: Normal to inspection, nondistended, normoactive bowel sounds present, Soft to palpation, non-tender and No hepatosplenomegaly present PALPATION: Yes Soft to palpation and Yes No hepatosplenomegaly present Extremity: COMMON NORMALS: no pedal edema Neuro: COMMON NORMALS: patient oriented x3 Data : 11/29/20 05:20 11/29/20 05:20 Micro: Microbiology 11/28/20 18:32 Blood Culture - Preliminary Blood SPECIMEN COLLECTED 11/28/20 18:15 Blood Culture - Preliminary Blood SPECIMEN COLLECTED A&P Assessment and plan (1) Pneumonia due to COVID-19 virus: Plan -Admit to general medical floors -Oxygen therapy protocol -Monitor respiratory status closely -Confirm Covid PCR, rapid Covid -Inflammatory markers, pro-Tripp, CRP, BNP, ferritin -Remdesivir day 1/ 5 -Decadron 6 mg IV push daily -Low-dose sliding scale -Rocephin, azithromycin -Vitamin C, zinc, vitamin D - albuterol, budesonide -Sputum cultures, blood cultures, urine bacterial antigens -Continue aspirin, Plavix -Protonix -Monitor for fluid overload, BMP today 2281, does not look fluid overloaded, no Lasix for today as creatinine is 1, continue to monitor -Monitor renal function closely -Full code -Lovenox for DVT prophylaxis Status: Acute (2) ASHD (arteriosclerotic heart disease): Status: Acute (3) CKD (chronic kidney disease): Status: Acute (4) COPD (chronic obstructive pulmonary disease): Status: Acute (5) HLD (hyperlipidemia): Status: Acute (6) HTN (hypertension): Status: Acute (7) Non-insulin dependent diabetes mellitus: Status: Acute Additional A&P Information Leukopenia, likely second to COVID-19 infection, continue to monitor Acute on chronic anemia, hemoglobin 9.5, continue to monitor, on Protonix, Hemoccult stool, iron studies Attestations 2 Medical Necessity Statement*: Patient requires hospitalization for pneumonia secondary COVID-19 Coding Level of Care Code Acute Enterprise Application Administrator for [facility] Fwd Diagnoses Pneumonia due to COVID-19 virus U07.1; J12.82 ASHD (arteriosclerotic heart disease) I25.10 CKD (chronic kidney disease) N18.9 COPD (chronic obstructive pulmonary disease) J44.9 HLD (hyperlipidemia) E78.5 HTN (hypertension) I10 Non-insulin dependent diabetes mellitus
[2020-11-29 14:15] LABS: Iron 10 ug/dL (37-145)
[2020-11-29 14:30] LABS: Vitamin B12 504 pg/mL (232-1245)
[2020-11-29 14:31] LABS: Folate Level 12.5 ng/mL (4.8-37.3)
--- NOTE | 2020-11-29 14:39 | PC.OT ---
O.T. evaluation withheld this date, unable to locate PAPR (PPE). To attempt evaluation on a later date.
[2020-11-29] MEDS: dexamethasone 10 mg/mL INJ 6 MG IVP (18:21)
[2020-11-29] MEDS: remdesivir 100 MG in sodium chloride 0.9% (100 ml) 100 ML IV (18:23)
[2020-11-29] MEDS: albuterol 8 gm MDI 2 PUFF INHALATION (19:21)
[2020-11-29 20:16] LABS: Glucose Point of Care 124 mg/dL (70-110)
[2020-11-29] MEDS: azithromycin 500 MG in sodium chloride 0.9% 250 ML 250 MG IV (20:31)
[2020-11-29] MEDS: enoxaparin 40 mg/0.4 mL Syringe SUBCUT (20:33)
[2020-11-29] MEDS: trazodone 50 mg Tablet PO (20:33)
[2020-11-29] MEDS: pantoprazole 40 mg SDV IVP (20:34)
[2020-11-29] MEDS: cefTRIAXone 1,000 MG in sodium chloride 0.9% (plus) 50 ML 100 MG IV (22:24)
[2020-11-30] VITALS (16 sets, daily range): BP systolic 129–151; BP diastolic 81–94; PULSE 68–91; RESP 14–22; TEMP 36.4–36.8; O2SAT 89–96
[2020-11-30 04:40] LABS: ABG PCO2 46.3 mmHg (35-45); ABG PH Result 7.39 (7.35-7.45); Arterial Blood Gas Hematocrit 32.1 % (37-47); Base Excess ABG 2.5 mmol/L (-2.0-2.0); Blood Gas Allen Test Pos; Blood Gas Sample Site Radial, right; Blood Gas Sample Type Arterial; PO2 ABG 61.5 mmHg (80.0-100.0)
[2020-11-30 04:41] LABS: Oxygen Device NC
[2020-11-30 07:07] LABS: Hematocrit 32.8 % (37.0-47.0); Hemoglobin 9.7 g/dL (11.5-15.3); Lymphocytes # 0.3 10^3/uL (0.8-4.8); Lymphocytes % 4.8 %; Mean Corpuscular HGB Conc 29.6 g/dL (30.0-36.0); Mean Corpuscular Hemoglobin 25.1 pg (28.0-34.0); Mean Platelet Volume 10.3 fL (7.4-10.4); Monocytes # 0.4 10^3/uL (0.2-0.9); Monocytes % 6.2 %; Neutrophils # 5.12 10^3/uL (1.8-7.7); Neutrophils % 88.5 %; Nucleated Red Blood Cells % 0 %; Platelet Count 213 10^3/cmm (130-400); Red Blood Count 3.86 10^6/uL (4.1-5.3); Red Cell Distribution Width 17.9 % (12.1-15.1); White Blood Count 5.8 10^3/uL (4.0-10.0)
[2020-11-30 07:15] LABS: Glucose Point of Care 148 mg/dL (70-110)
[2020-11-30 07:31] LABS: INR 1.15 (0.8-1.2)
[2020-11-30 07:33] LABS: Alanine Aminotransferase 11 U/L (0-33); Albumin Level 2.7 g/dL (3.5-5.2); Alkaline Phosphatase 63 IU/L (35-105); Anion Gap 12.3 (5-19); Aspartate Amino Transferase 28 U/L (0-32); Blood Urea Nitrogen 30 mg/dL (8-23); C Reactive Protein 54.1 mg/L (0.0-4.9); Calcium 8.1 mg/dL (8.5-10.5); Carbon Dioxide 28 mmol/L (22-29); Chloride 105 mmol/L (98-107); Globulin 3.1 g/dL (1.3-4.6); Glucose 138 mg/dL (65-115); Osmolality Calculated 300 mOsm/kg (285-295); Phosphorus 3.4 mg/dL (2.5-4.5); Potassium 4.3 mmol/L (3.5-5.1); Sodium 141 mmol/L (136-145); Total Bilirubin 0.2 mg/dL (0.15-1.2); Total Protein 5.8 g/dL (6.6-8.7)
[2020-11-30 08:19] LABS: Creatine Phosphokinase 83 U/L (26-192); Ferritin 707 ng/mL (15-150)
[2020-11-30] MEDS: ascorbic acid 500 mg Tablet PO (08:34)
[2020-11-30] MEDS: aspirin 81 mg EC Tablet PO (08:34)
[2020-11-30] MEDS: allopurinol 100 mg Tablet PO ×2 (08:34→18:49)
[2020-11-30] MEDS: metoprolol succinate ER (24 HR) 50 mg Tablet PO ×2 (08:34→18:49)
[2020-11-30] MEDS: ergocalciferol (vitamin D2) 50,000 Unit Capsule 50000 UNIT PO (08:34)
[2020-11-30] MEDS: gabapentin 400 mg Capsule PO ×3 (08:34→21:54)
[2020-11-30] MEDS: atorvastatin 40 mg Tablet 20 MG PO (08:34)
[2020-11-30] MEDS: zinc gluconate 50 mg Tablet PO (08:34)
[2020-11-30] MEDS: duloxetine 60 mg Capsule PO ×2 (08:34→18:49)
[2020-11-30] MEDS: clopidogrel 75 mg Tablet PO (08:35)
[2020-11-30] MEDS: budesonide 0.5 mg/2 mL Neb INHALATION (08:35)
[2020-11-30 08:57] LABS: NT Pro B Type Natriuretic Pept 2667 pg/mL (0-125); Procalcitonin 0.07 ng/mL (0-0.5)
--- NOTE | 2020-11-30 09:00 | PC.CHAP ---
Pastoral Care Encounter/Spiritual Assessment Type of Contact [] Declined telesales agent visit [] Patient/Family/Request visit [] Outpatient visit [] Follow-up visit [] Physician referral [] Code/Alert [x] Routine visit [] Staff referral [] Actively dying [x] Patient sleeping [] Family support [] [] Out of room [] Palliative care [] [] Receiving care in room [] Pre-surgical visit [] Trauma [] Long length of stay [] ICU visit [x] Other: 2a Relational/Emotional Strength [] Patient feels connected with others/family/visitors/staff [] Distress [] Loneliness/isolation [] Abandonment Spirituality of Patient [] Person of Ana [] Attends Latter-Day of their Ana [] Believes in Prayer [] Reads Bible or Denominational materials [] There are Spiritual issues to be addressed Cognos Analyst Interventions [x] Prayer [] Active listening [] Non-anxious presence [] Spiritual/emotional support [] Crisis/trauma care [] Spiritual counseling [] Bereavement support [] Provided bereavement packet [] Provided Bible/devotional materials [] Provided toy/stuffed animal, coloring book to patient or family member [] Provided Communion [] Anointing/[place] [] Salvation [x] Completed spiritual assessment [] Other: Impact on Illness or Injury [] Angry [] Fearful [] Anxious [] Often cries [] Exhaustion [] Unable to work [] Unable to attend zoroastrianism [] Unable to walk/stand [] Unable to read [] Unable to drive [] Unable to eat/drink [] Unable to sleep [] Unable to be with family [] Patient intubated [] Other: Summary Time spent with patient
--- NOTE | 2020-11-30 11:43 | PM.PN ---
Subjective Subjective: Interval history: History reviewed in detail in the chart as well as with the patient. She reports she feels a little bit better. She confirms she has COPD, occasionally wheezing but does not use oxygen at home. Medications: Reviewed: Yes Vitals/I&O/Wt Last Vital Signs Temp 97.6 F 11/30/20 07:48 Pulse 86 11/30/20 08:35 Resp 16 11/30/20 08:35 BP 129/90 11/30/20 08:29 Pulse Ox 92 11/30/20 08:35 11/29/20 11/30/20 11/30/20 22:59 06:59 14:59 Intake Total 710 / 710 50 / 760 480 / 480 Balance 710 / 710 50 / 760 480 / 480 Weight last 48 hrs Weight 108.862 kg Weight 108.862 kg Physical Exam Narrative: EXAM NARRATIVE: General exam is no apparent distress Neck is supple no lymphadenopathy or thyromegaly Cardiovascular regular rate and rhythm without murmur Lungs few bilateral expiratory wheezes Abdomen is soft with positive bowel sounds Extremities no cyanosis clubbing or edema Data : 11/30/20 05:53 11/30/20 05:53 Micro: Microbiology 11/28/20 18:32 Blood Culture - Preliminary Blood NEGATIVE TO DATE 11/28/20 18:15 Blood Culture - Preliminary Blood NEGATIVE TO DATE A&P Assessment and plan (1) Pneumonia due to COVID-19 virus: Wean oxygen as tolerated Continue remdesivir Continue dexamethasone Rocephin and azithromycin empirically Procalcitonin not elevated CTA demonstrates no evidence of pulmonary embolism Pulmonary toilet with budesonide, DuoNeb - albuterol, budesonide -Sputum cultures, blood cultures, urine bacterial antigens -Continue aspirin, Plavix -Protonix -Monitor for fluid overload, BMP today 2282, does not look fluid overloaded, no Lasix for today as creatinine is 1, continue to monitor -Monitor renal function closely -Full code -Lovenox for DVT prophylaxis Status: Acute (2) ASHD (arteriosclerotic heart disease): Status: Acute (3) CKD (chronic kidney disease): Continue to follow closely Status: Acute (4) COPD (chronic obstructive pulmonary disease): Pulmonary toilet. No evidence of exacerbation Status: Acute (5) HLD (hyperlipidemia): Continue statin Status: Acute (6) HTN (hypertension): Continue metoprolol Status: Acute (7) Non-insulin dependent diabetes mellitus: Sliding scale insulin Status: Acute Additional A&P Information Acute on chronic anemia, check stool Hemoccult. Continue Protonix Elevated BNP. Check echocardiogram. Echo 2018 demonstrated pulmonary hypertension, 1/4 diastolic dysfunction, EF 55% Attestations Medical Necessity Statement*: Needs continued hospital stay for IV antiviral, IV dexamethasone in this patient with severe COVID-19 pneumonia. Coding Level of Care Code Acute Poolroom Table Attendant for [facility] Diagnoses Pneumonia due to COVID-19 virus U07.1; J12.82 ASHD (arteriosclerotic heart disease) I25.10 CKD (chronic kidney disease) N18.9 COPD (chronic obstructive pulmonary disease) J44.9 HLD (hyperlipidemia) E78.5 HTN (hypertension) I10 Non-insulin dependent diabetes mellitus
[2020-11-30 12:45] LABS: Glucose Point of Care 188 mg/dL (70-110)
[2020-11-30] MEDS: FUROsemide 10 mg/mL SDV 2mL 20 MG IVP (12:57)
[2020-11-30] MEDS: ipratropium-albuterol 3 mL Neb INHALATION (15:00)
[2020-11-30 17:24] LABS: Glucose Point of Care 142 mg/dL (70-110)
--- NOTE | 2020-11-30 18:03 | PC.RESP ---
RT Shift Note Frequent safety and respiratory rounds continue. Orders completed as indicated. Patient monitored pre and post treatments throughout shift. Patient tolerated treatments appropriately. Condition did not change. Patient and/or retail wireless sales representative educated on respiratory treatment and medications. Patient and/or retail wireless sales representative verbalized understanding. Will continue to monitor patient progress.
[2020-11-30] MEDS: remdesivir 100 MG in sodium chloride 0.9% (100 ml) 100 ML IV (18:48)
[2020-11-30] MEDS: dexamethasone 10 mg/mL INJ 6 MG IVP (18:49)
[2020-11-30 21:17] LABS: Glucose Point of Care 135 mg/dL (70-110)
[2020-11-30] MEDS: azithromycin 500 MG in sodium chloride 0.9% 250 ML 250 MG IV (21:50)
[2020-11-30] MEDS: enoxaparin 40 mg/0.4 mL Syringe SUBCUT (21:51)
[2020-11-30] MEDS: pantoprazole 40 mg SDV IVP (21:53)
[2020-11-30] MEDS: cefTRIAXone 1,000 MG in sodium chloride 0.9% (plus) 50 ML 100 MG IV (21:53)
[2020-11-30] MEDS: trazodone 50 mg Tablet PO (21:54)
[2020-12-01] VITALS (76 sets, daily range): BP systolic 128–161; BP diastolic 84–117; PULSE 63–120; RESP 13–31; TEMP 35.9–36.8; O2SAT 74–95
[2020-12-01 01:22] LABS: Quest SARS-CoV-2 RNA DETECTED (NOT DETECTED)
[2020-12-01] MEDS: ipratropium-albuterol 3 mL Neb INHALATION ×2 (03:02→20:15)
[2020-12-01 06:03] LABS: Hematocrit 32.2 % (37.0-47.0); Hemoglobin 9.6 g/dL (11.5-15.3); Lymphocytes # 0.3 10^3/uL (0.8-4.8); Lymphocytes % 6.2 %; Mean Corpuscular HGB Conc 29.8 g/dL (30.0-36.0); Mean Corpuscular Hemoglobin 25.2 pg (28.0-34.0); Mean Corpuscular Volume 84.5 fl (81-99); Mean Platelet Volume 10.3 fL (7.4-10.4); Monocytes # 0.3 10^3/uL (0.2-0.9); Monocytes % 6.9 %; Neutrophils # 3.88 10^3/uL (1.8-7.7); Nucleated Red Blood Cells % 0 %; Platelet Count 204 10^3/cmm (130-400); Red Blood Count 3.81 10^6/uL (4.1-5.3); Red Cell Distribution Width 17.7 % (12.1-15.1); White Blood Count 4.5 10^3/uL (4.0-10.0)
[2020-12-01] MEDS: metoprolol succinate ER (24 HR) 50 mg Tablet PO ×2 (06:26→17:27)
[2020-12-01 06:31] LABS: Alanine Aminotransferase 11 U/L (0-33); Albumin Level 2.8 g/dL (3.5-5.2); Alkaline Phosphatase 59 IU/L (35-105); Anion Gap 13.4 (5-19); Aspartate Amino Transferase 26 U/L (0-32); Blood Urea Nitrogen 30 mg/dL (8-23); Calcium 8.1 mg/dL (8.5-10.5); Carbon Dioxide 29 mmol/L (22-29); Chloride 103 mmol/L (98-107); Globulin 3.1 g/dL (1.3-4.6); Glucose 149 mg/dL (65-115); Magnesium 1.9 mg/dL (1.7-2.3); Osmolality Calculated 301 mOsm/kg (285-295); Potassium 4.4 mmol/L (3.5-5.1); Sodium 141 mmol/L (136-145); Total Bilirubin 0.2 mg/dL (0.15-1.2); Total Protein 5.9 g/dL (6.6-8.7)
--- NOTE | 2020-12-01 07:18 | PC.NURSE ---
The Grooving Machine Operator was notified a little after 0600 to explain that the patient had been experiencing a high MAP in the 30's. The physician called back after looking at the patient's medical record and changed the time to administer the Metoprolol medication. 50 mg of metoprolol were given between [id number]. It was also noted to the physician that the patient normally takes lisinopril at home, and that medication had never been restarted. The physician said that she would let the day time Hospitalist know about this so that a decision could be made to restart the medication or not. There were no other complications with this patient during the shift.
[2020-12-01] MEDS: duloxetine 60 mg Capsule PO ×2 (07:40→17:27)
[2020-12-01] MEDS: allopurinol 100 mg Tablet PO ×2 (07:40→17:27)
[2020-12-01] MEDS: aspirin 81 mg EC Tablet PO (07:40)
[2020-12-01] MEDS: atorvastatin 40 mg Tablet 20 MG PO (07:40)
[2020-12-01] MEDS: clopidogrel 75 mg Tablet PO (07:40)
[2020-12-01] MEDS: gabapentin 400 mg Capsule PO ×3 (07:40→21:06)
[2020-12-01 07:52] LABS: Glucose Point of Care 150 mg/dL (70-110)
--- NOTE | 2020-12-01 08:33 | PC.NURSE ---
Nurse notified of high BP.
--- NOTE | 2020-12-01 09:18 | PC.CHAP ---
Pastoral Care Encounter/Spiritual Assessment Type of Contact [] Declined stna visit [] Patient/Family/Request visit [] Outpatient visit [] Follow-up visit [] Physician referral [] Code/Alert [x] Routine visit [] Staff referral [] Actively dying [] Patient sleeping [] Family support [] [] Out of room [] Palliative care [] [] Receiving care in room [] Pre-surgical visit [] Trauma [] Long length of stay [] ICU visit [x] Other: 2a Relational/Emotional Strength [] Patient feels connected with others/family/visitors/staff [] Distress [] Loneliness/isolation [] Abandonment Spirituality of Patient [] Person of Ana [] Attends Adventist of their Ana [] Believes in Prayer [] Reads Bible or Uatsdin materials [] There are Spiritual issues to be addressed Farm Appraiser Interventions [x] Prayer [] Active listening [] Non-anxious presence [] Spiritual/emotional support [] Crisis/trauma care [] Spiritual counseling [] Bereavement support [] Provided bereavement packet [] Provided Bible/devotional materials [] Provided toy/stuffed animal, coloring book to patient or family member [] Provided Communion [] Anointing/[place] [] Salvation [x] Completed spiritual assessment [] Other: Impact on Illness or Injury [] Angry [] Fearful [] Anxious [] Often cries [] Exhaustion [] Unable to work [] Unable to attend latter-day [] Unable to walk/stand [] Unable to read [] Unable to drive [] Unable to eat/drink [] Unable to sleep [] Unable to be with family [] Patient intubated [] Other: Summary Time spent with patient
--- NOTE | 2020-12-01 10:31 | P.PN_ITS ---
Subjective Subjective: Interval history: Lyndsey reports she feels okay. Still on 4 L of oxygen. No chest pain. Nurses relate that she has had higher blood pressures lately. Medications: Reviewed: Yes Vitals/I&O/Wt Last Vital Signs Temp 98.2 F 12/01/20 08:00 Pulse 92 12/01/20 08:00 Resp 19 H 12/01/20 08:00 BP 142/106 12/01/20 08:00 Pulse Ox 86 L 12/01/20 08:00 11/30/20 12/01/20 12/01/20 22:59 06:59 14:59 Intake Total 880 / 1720 120 / 120 Output Total 1600 / 1600 1000 / 2600 Balance -720 / 120 -1000 / -880 120 / 120 Physical Exam Narrative: EXAM NARRATIVE: General exam is no apparent distress. Blood pressure is high Neck is supple no lymphadenopathy or thyromegaly Cardiovascular regular rate and rhythm without murmur Lungs few bilateral expiratory wheezes Abdomen is soft with positive bowel sounds Extremities no cyanosis clubbing or edema Data : 12/01/20 05:22 12/01/20 05:22 A&P Assessment and plan (1) Pneumonia due to COVID-19 virus: Wean oxygen as tolerated Continue remdesivir Continue dexamethasone Rocephin and azithromycin empirically. Plan to discontinue azithromycin after today's dose. Procalcitonin not elevated CTA demonstrates no evidence of pulmonary embolism Pulmonary toilet with budesonide, DuoNeb Status: Acute (2) ASHD (arteriosclerotic heart disease): Status: Acute (3) CKD (chronic kidney disease): Continue to follow closely Status: Acute (4) COPD (chronic obstructive pulmonary disease): Pulmonary toilet. No evidence of exacerbation Status: Acute (5) HLD (hyperlipidemia): Continue statin Status: Acute (6) HTN (hypertension): Continue metoprolol Restart patient's lisinopril, 20 mg daily Status: Acute (7) Non-insulin dependent diabetes mellitus: Sliding scale insulin Status: Acute Additional A&P Information Acute on chronic anemia, check stool Hemoccult. Continue Protonix Elevated BNP. Check echocardiogram. Echo 2019 demonstrated pulmonary hypertension, 1/4 diastolic dysfunction, EF 55% Attestations Medical Necessity Statement*: Specialization for IV antiviral, dexamethasone for severe COVID-19 pneumonia requiring oxygen. Coding Level of Care Code Acute Boiler Room Helper for [facility] Fwd Diagnoses Pneumonia due to COVID-19 virus U07.1; J12.82 ASHD (arteriosclerotic heart disease) I25.10 CKD (chronic kidney disease) N18.9 COPD (chronic obstructive pulmonary disease) J44.9 HLD (hyperlipidemia) E78.5 HTN (hypertension) I10 Non-insulin dependent diabetes mellitus
--- NOTE | 2020-12-01 10:35 | USCV_ITS ---
Lyndsey Franco Age: 70 Gender: F : 1950 Exam Date: 12/01/2020 16:29 Ordering Phys: Eduard Song MD Technologist: Blank Doherty Exam Location: [facility] [place] Indication: ELEVATED BNP, COVID BP: 128 / 84 HR: 69 Rhythm: Atrial fibrillation Technical Quality: Adequate MEASUREMENTS (Male / Female) Normal Values 2D ECHO LV Diastolic Diameter PLAX 4.3 cm 4.2 - 5.9 / 3.9 - 5.3 cm LV Systolic Diameter PLAX 3.9 cm IVS Diastolic Thickness 1.8 cm 0.6 - 1.0 / 0.6 - 0.9 cm IVS Systolic Thickness 2.3 cm LVPW Diastolic Thickness 1.7 cm 0.6 - 1.0 / 0.6 - 0.9 cm LVPW Systolic Thickness 2.1 cm LVOT Diameter 2.0 cm LV Ejection Fraction 2D Teich 27.1 % LV Ejection Fraction MOD 2C 16.0 % LV Ejection Fraction 2C AL 16.9 % LA Diameter 4.0 cm LA Width 3.8 cm LA Height 6.3 cm RA Width 3.7 cm RA Height 4.9 cm Aorta at Sinotubular Diameter 2.7 cm M-MODE Aortic Annulus Diameter 3.6 cm LA Ao Ratio MM 1.1 MV E Point Septal Separation 0.8 cm DOPPLER AV Peak Velocity 127.0 cm/s LVOT Peak Velocity 70.0 cm/s AV Area Cont Eq vti 2.0 cm squared AV Area Cont Eq pk 1.8 cm squared MV Area PHT 3.3 cm squared MV E' Velocity 63.5 cm/s Mitral E to MV E' Ratio 18.6 Mitral E to LV E' Lateral Ratio 21.6 Mitral E to LV E' Septal Ratio 16.3 TR Peak Velocity 324.7 cm/s TR Peak Gradient 42.2 mmHg TR Mean Velocity 288.2 cm/s TR Mean Gradient 34.5 mmHg TR Velocity Time Integral 108.1 cm TV Peak E Velocity 52.0 cm/s Right Atrial Pressure 3.0 mmHg Pulmonary Artery Systolic Pressu 45.2 mmHg PV Peak Velocity 103.0 cm/s RV Acceleration Time 0.1 s RV Ejection Time 0.3 s RV AcT/ET 0.3 FINDINGS Left Ventricle Normal left ventricular cavity size. Severely decreased left ventricular systolic function. Left ventricular ejection fraction is estimated at 35 %. Grade I/IV diastolic dysfunction (abnormal relaxation filling pattern), normal to mildly elevated filling pressures. Right Ventricle The right ventricle is normal in size and function. Mild pulmonary hypertension, RVSP 45.2 mmHg. Right Atrium Moderately increased right atrial size. Left Atrium Mildly increased left atrial size. Mitral Valve Moderately thickened mitral valve. No mitral valve stenosis. Moderate mitral valve regurgitation. Aortic Valve Aortic valve sclerosis without stenosis or regurgitation. Tricuspid Valve Moderate tricuspid valve regurgitation. Pulmonic Valve Pulmonic valve not well visualized. Pericardium Normal pericardium without effusion. Aorta Normal ascending aorta dimension. CONCLUSIONS 1-Normal left ventricular cavity size. Severely decreased left ventricular systolic function. Left ventricular ejection fraction is estimated at 35 %. Grade I/IV diastolic dysfunction (abnormal relaxation filling pattern), normal to mildly elevated filling pressures. 2-Moderately increased right atrial size. 3-Moderately thickened mitral valve. No mitral valve stenosis. Moderate mitral valve regurgitation. 4-Aortic valve sclerosis without stenosis or regurgitation. 5-Moderate tricuspid valve regurgitation. 6-There is no pericardial effusion. 7-The right ventricle is normal in size and function. Mild pulmonary hypertension, RVSP 45.2 mmHg. 8-when compared to the prior echocardiogram dated April 01, 2019 left leg ejection fraction has worsened from normal 55% to severely depressed 35% now. There is a moderate tricuspid and mitral valve regurgitation . Lillie Hopkins MD (Electronically Signed) Final Date: 01 December 2020 19:45 S
[2020-12-01 10:58] LABS: Glucose Point of Care 102 mg/dL (70-110)
[2020-12-01] MEDS: lisinopril 20 mg Tablet PO (11:22)
--- NOTE | 2020-12-01 12:59 | PC.SOCIAL ---
IM follow up discussed with patient and copy provided. NO questions voiced.
[2020-12-01 16:59] LABS: Glucose Point of Care 144 mg/dL (70-110)
[2020-12-01] MEDS: dexamethasone 10 mg/mL INJ 6 MG IVP (17:27)
[2020-12-01] MEDS: remdesivir 100 MG in sodium chloride 0.9% (100 ml) 100 ML 200 MG IV (17:27)
--- NOTE | 2020-12-01 17:53 | PC.RESP ---
RT Shift Note Frequent safety and respiratory rounds continue. Orders completed as indicated. Patient monitored pre and post treatments throughout shift. Patient tolerated treatments appropriately. Condition did not change. Patient and/or help desk representative educated on respiratory treatment and medications. Patient and/or help desk representative verbalized understanding. Will continue to monitor patient progress.
[2020-12-01] MEDS: budesonide 0.5 mg/2 mL Neb INHALATION (20:20)
[2020-12-01 20:57] LABS: Glucose Point of Care 166 mg/dL (70-110)
[2020-12-01] MEDS: azithromycin 500 MG in sodium chloride 0.9% 250 ML 250 MG IV (21:05)
[2020-12-01] MEDS: cefTRIAXone 1,000 MG in sodium chloride 0.9% (plus) 50 ML 100 MG IV (21:05)
[2020-12-01] MEDS: enoxaparin 40 mg/0.4 mL Syringe SUBCUT (21:05)
[2020-12-01] MEDS: trazodone 50 mg Tablet PO (21:06)
[2020-12-01] MEDS: pantoprazole 40 mg SDV IVP (21:25)
[2020-12-02] VITALS (17 sets, daily range): BP systolic 125–165; BP diastolic 82–101; PULSE 66–105; RESP 16–84; TEMP 36.6–36.8; O2SAT 89–98
[2020-12-02] MEDS: ipratropium-albuterol 3 mL Neb INHALATION ×4 (02:40→20:26)
[2020-12-02 05:13] LABS: Hematocrit 33.5 % (37.0-47.0); Lymphocytes # 0.2 10^3/uL (0.8-4.8); Lymphocytes % 5.4 %; Mean Corpuscular HGB Conc 29.9 g/dL (30.0-36.0); Mean Corpuscular Hemoglobin 25.4 pg (28.0-34.0); Mean Corpuscular Volume 85.2 fl (81-99); Mean Platelet Volume 9.8 fL (7.4-10.4); Monocytes # 0.3 10^3/uL (0.2-0.9); Monocytes % 7.1 %; Neutrophils % 86.7 %; Nucleated Red Blood Cells % 0 %; Platelet Count 211 10^3/cmm (130-400); Red Blood Count 3.93 10^6/uL (4.1-5.3); Red Cell Distribution Width 17.6 % (12.1-15.1); White Blood Count 3.9 10^3/uL (4.0-10.0)
[2020-12-02] MEDS: metoprolol succinate ER (24 HR) 50 mg Tablet PO ×2 (05:33→17:17)
[2020-12-02 05:34] LABS: Alanine Aminotransferase 14 U/L (0-33); Albumin Level 2.7 g/dL (3.5-5.2); Alkaline Phosphatase 60 IU/L (35-105); Anion Gap 13.9 (5-19); Aspartate Amino Transferase 33 U/L (0-32); Blood Urea Nitrogen 29 mg/dL (8-23); Calcium 7.7 mg/dL (8.5-10.5); Carbon Dioxide 28 mmol/L (22-29); Chloride 100 mmol/L (98-107); Glucose 219 mg/dL (65-115); Osmolality Calculated 299 mOsm/kg (285-295); Potassium 3.9 mmol/L (3.5-5.1); Sodium 138 mmol/L (136-145); Total Bilirubin 0.2 mg/dL (0.15-1.2); Total Protein 5.7 g/dL (6.6-8.7)
[2020-12-02 05:36] LABS: Glucose Point of Care 211 mg/dL (70-110)
[2020-12-02 05:40] LABS: Procalcitonin 0.04 ng/mL (0-0.5)
[2020-12-02] MEDS: clopidogrel 75 mg Tablet PO (07:42)
[2020-12-02] MEDS: lisinopril 20 mg Tablet PO (07:42)
[2020-12-02] MEDS: gabapentin 400 mg Capsule PO ×3 (07:42→20:37)
[2020-12-02] MEDS: atorvastatin 40 mg Tablet 20 MG PO (07:42)
[2020-12-02] MEDS: aspirin 81 mg EC Tablet PO (07:43)
[2020-12-02] MEDS: allopurinol 100 mg Tablet PO ×2 (07:43→17:17)
[2020-12-02] MEDS: duloxetine 60 mg Capsule PO ×2 (07:43→17:17)
[2020-12-02 08:08] LABS: Glucose Point of Care 299 mg/dL (70-110)
[2020-12-02] MEDS: budesonide 0.5 mg/2 mL Neb INHALATION ×2 (09:15→20:26)
--- NOTE | 2020-12-02 10:16 | PM.PN ---
Subjective Subjective: Interval history: Lyndsey reports she feels a little bit better. Feels like she is getting her energy back. She has been weaned down to 3 L. Medications: Reviewed: Yes Vitals/I&O/Wt Last Vital Signs Temp 97.9 F 12/02/20 08:36 Pulse 70 12/02/20 09:15 Resp 20 H 12/02/20 09:15 BP 125/98 12/02/20 08:36 Pulse Ox 93 12/02/20 09:15 12/01/20 12/02/20 12/02/20 22:59 06:59 14:59 Intake Total 640 / 1000 Balance 640 / 1000 Physical Exam Narrative: EXAM NARRATIVE: General exam is no apparent distress. Blood pressure under better control Neck is supple no lymphadenopathy or thyromegaly Cardiovascular regular rate and rhythm without murmur Lungs few bilateral expiratory wheezes Abdomen is soft with positive bowel sounds Extremities no cyanosis clubbing or edema Data : 12/02/20 04:18 12/02/20 04:18 A&P Assessment and plan (1) Pneumonia due to COVID-19 virus: Continue to wean oxygen Continue remdesivir Continue dexamethasone Rocephin empirically. Discontinue azithromycin. Procalcitonin not elevated CTA demonstrates no evidence of pulmonary embolism Pulmonary toilet with budesonide, DuoNeb Blood cultures negative to date Status: Acute (2) ASHD (arteriosclerotic heart disease): Status: Acute (3) CKD (chronic kidney disease): Renal function stable Status: Acute (4) COPD (chronic obstructive pulmonary disease): Pulmonary toilet. No evidence of exacerbation Status: Acute (5) HLD (hyperlipidemia): Continue statin Status: Acute (6) HTN (hypertension): Continue metoprolol Restart patient's lisinopril, 20 mg daily Status: Acute (7) Non-insulin dependent diabetes mellitus: Sliding scale insulin Status: Acute Additional A&P Information Acute on chronic anemia, check stool Hemoccult. Continue Protonix Elevated BNP. Check echocardiogram. 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
[2020-12-02 11:44] LABS: Glucose Point of Care 154 mg/dL (70-110)
[2020-12-02 16:32] LABS: Glucose Point of Care 118 mg/dL (70-110)
[2020-12-02] MEDS: dexamethasone 10 mg/mL INJ 6 MG IVP (17:17)
[2020-12-02] MEDS: remdesivir 100 MG in sodium chloride 0.9% (100 ml) 100 ML IV (17:18)
--- NOTE | 2020-12-02 17:47 | PC.RESP ---
RT Shift Note Frequent safety and respiratory rounds continue. Orders completed as indicated. Patient monitored pre and post treatments throughout shift. Patient tolerated treatments appropriately. Condition did not change. Patient and/or sales representative printing supplies educated on respiratory treatment and medications. Patient and/or sales representative printing supplies verbalized understanding. Will continue to monitor patient progress.
[2020-12-02 20:24] LABS: Glucose Point of Care 179 mg/dL (70-110)
[2020-12-02] MEDS: cefTRIAXone 1,000 MG in sodium chloride 0.9% (plus) 50 ML 100 MG IV (20:36)
[2020-12-02] MEDS: trazodone 50 mg Tablet PO (20:37)
[2020-12-02] MEDS: enoxaparin 40 mg/0.4 mL Syringe SUBCUT (20:37)
[2020-12-02] MEDS: pantoprazole 40 mg SDV IVP (21:06)
[2020-12-03] VITALS (11 sets, daily range): BP systolic 140–161; BP diastolic 86–114; PULSE 69–100; RESP 16–20; TEMP 36.7–36.9; O2SAT 85–95
[2020-12-03 07:08] LABS: Glucose Point of Care 201 mg/dL (70-110)
[2020-12-03] MEDS: metoprolol succinate ER (24 HR) 50 mg Tablet PO ×2 (07:17→17:34)
[2020-12-03] MEDS: budesonide 0.5 mg/2 mL Neb INHALATION ×2 (08:18→21:31)
[2020-12-03] MEDS: ipratropium-albuterol 3 mL Neb INHALATION ×2 (08:18→21:32)
[2020-12-03] MEDS: aspirin 81 mg EC Tablet PO (09:21)
[2020-12-03] MEDS: atorvastatin 40 mg Tablet 20 MG PO (09:21)
[2020-12-03] MEDS: lisinopril 20 mg Tablet PO (09:21)
[2020-12-03] MEDS: allopurinol 100 mg Tablet PO ×2 (09:21→17:34)
[2020-12-03] MEDS: duloxetine 60 mg Capsule PO ×2 (09:22→17:34)
[2020-12-03] MEDS: clopidogrel 75 mg Tablet PO (09:22)
[2020-12-03] MEDS: gabapentin 400 mg Capsule PO ×3 (09:22→20:46)
--- NOTE | 2020-12-03 10:20 | PM.PN ---
Subjective Subjective: Interval history: Lyndsey reports she is doing okay. No better than yesterday. Nurse alerts me oxygen requirement has increased. She also has concerns as blood pressure is elevated. Medications: Reviewed: Yes Vitals/I&O/Wt Last Vital Signs Temp 98.2 F 12/03/20 08:00 Pulse 80 12/03/20 08:30 Resp 18 12/03/20 08:30 BP 157/114 12/03/20 08:00 Pulse Ox 88 L 12/03/20 08:30 12/02/20 12/03/20 12/03/20 22:59 06:59 14:59 Intake Total 510 / 1150 240 / 240 Balance 510 / 1150 240 / 240 Physical Exam Narrative: EXAM NARRATIVE: General exam is no apparent distress. Blood pressure under better control Neck is supple no lymphadenopathy or thyromegaly Cardiovascular regular rate and rhythm without murmur Lungs few bilateral expiratory wheezes Abdomen is soft with positive bowel sounds Extremities no cyanosis clubbing or edema Data : 12/02/20 04:18 12/02/20 04:18 A&P Assessment and plan (1) Pneumonia due to COVID-19 virus: She continues to require oxygen. Need is increased from yesterday. Continue remdesivir through day 10 Continue dexamethasone Rocephin empirically. Discontinue azithromycin. Secondary to increased oxygen requirement repeat laboratory today including procalcitonin and dimer CTA demonstrates no evidence of pulmonary embolism on admission Continue pulmonary toilet with budesonide, DuoNeb Blood cultures negative to date Consider dose of Lasix depending upon patient's laboratory Status: Acute (2) ASHD (arteriosclerotic heart disease): Status: Acute (3) CKD (chronic kidney disease): Renal function stable Status: Acute (4) COPD (chronic obstructive pulmonary disease): Pulmonary toilet. No evidence of exacerbation Status: Acute (5) HLD (hyperlipidemia): Continue statin Status: Acute (6) HTN (hypertension): Continue metoprolol Restarted the patient's metoprolol at 20 mg a day Add Norvasc 5 mg daily Status: Acute (7) Non-insulin dependent diabetes mellitus: Sliding scale insulin Status: Acute Additional A&P Information Acute on chronic anemia, check stool Hemoccult. Continue Protonix Elevated BNP. Check echocardiogram. Echo 2019 demonstrated pulmonary hypertension, 1/4 diastolic dysfunction, EF 55% Full code Lovenox for DVT prophylaxis Attestations Medical Necessity Statement*: Needs continued hospitalization secondary to severe COVID-19 pneumonia, with increasing oxygen requirement. 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
--- NOTE | 2020-12-03 10:33 | PC.SOCIAL ---
IMM Not Updated Pg. 2of IMM Not updated, patient not anticipated to discharge within 48hours.
[2020-12-03 11:02] LABS: Glucose Point of Care 199 mg/dL (70-110)
[2020-12-03] MEDS: amlodipine 5 mg Tablet PO (12:04)
[2020-12-03 13:00] LABS: Hematocrit 34.4 % (37.0-47.0); Hemoglobin 10.5 g/dL (11.5-15.3); Lymphocytes # 0.3 10^3/uL (0.8-4.8); Lymphocytes % 5.5 %; Mean Corpuscular HGB Conc 30.5 g/dL (30.0-36.0); Mean Corpuscular Hemoglobin 25.4 pg (28.0-34.0); Mean Corpuscular Volume 83.3 fl (81-99); Monocytes # 0.6 10^3/uL (0.2-0.9); Monocytes % 11.2 %; Neutrophils # 4.15 10^3/uL (1.8-7.7); Neutrophils % 81.9 %; Nucleated Red Blood Cells % 0 %; Platelet Count 284 10^3/cmm (130-400); Red Blood Count 4.13 10^6/uL (4.1-5.3); Red Cell Distribution Width 17.4 % (12.1-15.1); White Blood Count 5.1 10^3/uL (4.0-10.0)
[2020-12-03 13:15] LABS: D Dimer 1.38 ug/mIFEU (0-0.59)
[2020-12-03 13:47] LABS: Anion Gap 12.6 (5-19); Blood Urea Nitrogen 26 mg/dL (8-23); C Reactive Protein 14.5 mg/L (0.0-4.9); Calcium 7.8 mg/dL (8.5-10.5); Carbon Dioxide 29 mmol/L (22-29); Chloride 98 mmol/L (98-107); Glucose 186 mg/dL (65-115); Osmolality Calculated 292 mOsm/kg (285-295); Potassium 3.6 mmol/L (3.5-5.1); Sodium 136 mmol/L (136-145)
--- NOTE | 2020-12-03 14:39 | PC.NURSE ---
called family for update, no answer, message left.
[2020-12-03] MEDS: potassium chloride ER 20 mEq Tablet 40 MEQ PO (16:02)
[2020-12-03 16:52] LABS: Glucose Point of Care 121 mg/dL (70-110)
[2020-12-03] MEDS: remdesivir 100 MG in sodium chloride 0.9% (100 ml) 100 ML IV (17:34)
[2020-12-03] MEDS: dexamethasone 10 mg/mL INJ 6 MG IVP (18:29)
[2020-12-03] MEDS: FUROsemide 10 mg/mL SDV 2mL 20 MG IVP (18:29)
[2020-12-03 20:41] LABS: Glucose Point of Care 143 mg/dL (70-110)
[2020-12-03] MEDS: enoxaparin 40 mg/0.4 mL Syringe SUBCUT (20:46)
[2020-12-03] MEDS: trazodone 50 mg Tablet PO (20:46)
[2020-12-03] MEDS: cefTRIAXone 1,000 MG in sodium chloride 0.9% (plus) 50 ML 100 MG IV (20:46)
[2020-12-03] MEDS: pantoprazole 40 mg SDV IVP (20:59)
[2020-12-04] VITALS (15 sets, daily range): BP systolic 91–136; BP diastolic 59–93; PULSE 73–120; RESP 14–28; TEMP 36.4–36.8; O2SAT 84–94
[2020-12-04] MEDS: ipratropium-albuterol 3 mL Neb INHALATION ×5 (02:37→20:40)
[2020-12-04] MEDS: metoprolol succinate ER (24 HR) 50 mg Tablet PO ×2 (06:17→17:55)
[2020-12-04 06:52] LABS: Glucose Point of Care 186 mg/dL (70-110)
[2020-12-04] MEDS: aspirin 81 mg EC Tablet PO (08:26)
[2020-12-04] MEDS: allopurinol 100 mg Tablet PO ×2 (08:26→17:54)
[2020-12-04] MEDS: gabapentin 400 mg Capsule PO ×3 (08:26→20:34)
[2020-12-04] MEDS: clopidogrel 75 mg Tablet PO (08:26)
[2020-12-04] MEDS: lisinopril 20 mg Tablet PO (08:26)
[2020-12-04] MEDS: atorvastatin 40 mg Tablet 20 MG PO (08:26)
[2020-12-04] MEDS: duloxetine 60 mg Capsule PO ×2 (08:26→17:55)
[2020-12-04] MEDS: amlodipine 5 mg Tablet PO (08:27)
[2020-12-04] MEDS: budesonide 0.5 mg/2 mL Neb INHALATION ×2 (08:32→20:40)
--- NOTE | 2020-12-04 10:08 | PM.PN ---
Subjective Subjective: Interval history: Lyndsey reports she feels okay today. Perhaps a little bit better. Coughing up a little bit of sputum on occasion. Medications: Reviewed: Yes Vitals/I&O/Wt Last Vital Signs Temp 97.9 F 12/04/20 07:57 Pulse 91 12/04/20 08:41 Resp 18 12/04/20 08:33 BP 136/93 12/04/20 07:57 Pulse Ox 91 12/04/20 08:33 12/03/20 12/04/20 12/04/20 22:59 06:59 14:59 Intake Total 270 / 630 120 / 120 Balance 270 / 630 120 / 120 Physical Exam Narrative: EXAM NARRATIVE: General exam is no apparent distress. Neck is supple no lymphadenopathy or thyromegaly Cardiovascular irreg irreg rhythm without murmur Lungs few bilateral expiratory wheezes. Diminished breath sounds bilaterally. Abdomen is soft with positive bowel sounds Extremities no cyanosis clubbing or edema Data : 12/04/20 10:55 12/04/20 10:55 Micro: Microbiology 11/28/20 18:32 Blood Culture - Final Blood NO GROWTH AFTER 5 DAYS 11/28/20 18:15 Blood Culture - Final Blood NO GROWTH AFTER 5 DAYS A&P Assessment and plan (1) Pneumonia due to COVID-19 virus: She continues to require oxygen. Slight decrease from yesterday Continue remdesivir through day 10, unless significant improvement occurs were discharged home as applicable Continue dexamethasone Rocephin empirically. Discontinue azithromycin. Repeat laboratory yesterday demonstrated decreasing dimer, decreasing CRP CTA demonstrates no evidence of pulmonary embolism on admission Continue pulmonary toilet with budesonide, DuoNeb Blood cultures negative to date Lasix 20 mg IV was given x1 on December 04. Repeat dose today. Repeat laboratory tomorrow. Status: Acute (2) ASHD (arteriosclerotic heart disease): Status: Acute (3) CKD (chronic kidney disease): Renal function stable Status: Acute (4) COPD (chronic obstructive pulmonary disease): Pulmonary toilet. No evidence of exacerbation Status: Acute (5) HLD (hyperlipidemia): Continue statin Status: Acute (6) HTN (hypertension): Continue metoprolol Restarted the patient's metoprolol at 20 mg a day Add Norvasc 5 mg daily Status: Acute (7) Non-insulin dependent diabetes mellitus: Sliding scale insulin Status: Acute Additional A&P Information Acute on chronic anemia, still awaiting stool Hemoccult. Continue Protonix. Hemoglobin stable Elevated BNP. Echocardiogram demonstrated an EF of 35%(previous 55%), 1/4 diastolic dysfunction. Moderate tricuspid regurgitation, mild pulmonary hypertension noted. With this decrease in ejection fraction plan on continuing Lasix. Initiate Lasix 40 mg a day with 20 mEq of potassium. She will likely need a nuclear stress test after recovering from Covid. Noted her troponin on admission did not have significant delta. She is already on KEELY inhibitor and beta-rebecca. She is able to lay flat, and does not appear fluid overloaded but considering her EF and COVID-19 pneumonia diuresis may improve her condition substantially. Atrial fibrillation. Heart rates currently stable. This was present on a previous hospital stay in 2018. She is not currently anticoagulated. Currently on DVT prophylaxis Lovenox, Plavix, aspirin with her history of coronary disease. Full code Lovenox for DVT prophylaxis Attestations Medical Necessity Statement*: Needs continued hospitalization secondary to COVID-19 pneumonia requiring oxygen. 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
--- NOTE | 2020-12-04 10:19 | PC.NURSE ---
Called Rapid Response Team This nurse was in room w/ bed1 when pt in bed2 and Physical Therapy are up in room walking. Witnessed pt got weak on her knees, PT gently put her down on the floor. 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 No biting noted. Assisted pt in laying down supine to floor. Pulse could not be palpated on her neck or femoral artery. CPR started by this nurse immediately for about 1-2 mins. RRTeam came and ambubag started. Checked pulse and is present. Pt started to respond. Pt is alert, awake and oriented. Pt Stated, where is my bed? . Noted Pt urinated and defecated during the loss of consciousness. Pt got back to the bed safely with the team. BP-132/86, EKG taken, HR- between 95-100s, Afib. Received order for stat blood draw. Received order from to hold IV Lasix one time order. ICU transfer ordered to monitor pt closely.
--- NOTE | 2020-12-04 10:29 | ECG_ITS ---
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 Measurements Intervals [place] Rate: 92 P: [place]: QRS: -52 QRSD: 140 T: 37 QT: 409 QTc: 508 Interpretive Statements ATRIAL FIBRILLATION LEFT AXIS DEVIATION [QRS AXIS < -30] RIGHT BUNDLE BRANCH BLOCK [120+ ms QRS DURATION, UPRIGHT V1, 40+ ms S IN I/aVL/V4/V5/V6] POSSIBLE SEPTAL MYOCARDIAL INFARCTION , OF INDETERMINATE AGE [30 ms Q WAVE IN V1/V2] Compared to ECG 11/28/2020 22:28:08 Left-axis deviation now present Right bundle-branch block now present Myocardial infarct finding still present Electronically Signed On 12-04-2020 19:31:54 CDT by Delmis Camilo M.D. [id number]
--- NOTE | 2020-12-04 10:51 | CTR_ITS ---
PROCEDURE INFORMATION: Exam: CT Head Without Contrast Exam date and time: 12/04/2020 10:51 AM Age: 70 years old Clinical indication: Injury or trauma; Fall; Concussion/head injury; Additional info: Syncope , fall TECHNIQUE: Imaging protocol: Computed tomography of the head without contrast. Radiation optimization: All CT scans at this facility use at least one of these dose optimization techniques: automated exposure control; mA and/or kV adjustment per patient size (includes targeted exams where dose is matched to clinical indication); or iterative reconstruction. COMPARISON: CT head wo con* [id number] 10/21/2016 1:03 PM RADIATION DOSE METRICS: Total DLP (mGy-cm): 956.69 FINDINGS: Brain: There is mild cortical atrophy. Low-density changes in the white matter are consistent with nonspecific small vessel chronic ischemic change. There is no intracranial mass, hemorrhage or edema. Cerebral ventricles: No ventriculomegaly. Paranasal sinuses: Visualized sinuses are unremarkable. No fluid levels. Mastoid air cells: Visualized mastoid air cells are well aerated. Bones/joints: Unremarkable. No acute fracture. Soft tissues: Unremarkable. CT/CT head wo con* [id number] IMPRESSION: 1. Atrophy and chronic ischemic changes are unchanged. 2. No acute intracranial finding. Limitations: Study is slightly limited by patient motion. Radiation Dose CTDIVOL = (mGy): DLP = 956.69 (mGy-cm)
--- NOTE | 2020-12-04 11:00 | PC.NURSE ---
Pt started to have soreness and pain upon movement and breathing post cpr. rated pain level at 3/10. Tylenol PRN given. Pillow provided as splinting. Pt respond well to this nsg.intervention. Will keep monitoring.
[2020-12-04 11:10] LABS: ABG PCO2 39.8 mmHg (35-45); Alveolar-Arterial Oxygen Gradi 25.7 mmHg (5-10); Arterial Blood Gas Hematocrit 32.8 % (37-47); Base Excess ABG 7.1 mmol/L (-2.0-2.0); Blood Gas Allen Test Pos; Blood Gas Operator Identificat MONRO; Blood Gas Sample Site Radial, left; Blood Gas Sample Type Arterial; Carboxyhemoglobin 0.7 %THgb (0.4-20.1); HCO3 ABG 30.9 mmol/L (22-26); HGB O2 Sat 91.7 % (95-100); Ionized Calcium Level - ABG 1.1 mmol/L (1.1-1.4); Methemoglobin 0.2 % (0.4-1.5); Oxygen Device NC; Oxygen Saturation ABG 92.4; PO2 ABG 65.7 mmHg (80.0-100.0); Potassium Level - ABG 3.6 mmol/L (3.5-5.0); Total Hemoglobin 10.7 g/dL (12-16)
[2020-12-04 11:11] LABS: Basophils % 0.2 %; Hematocrit 35.7 % (37.0-47.0); Hemoglobin 10.7 g/dL (11.5-15.3); Lymphocytes # 0.3 10^3/uL (0.8-4.8); Lymphocytes % 4.1 %; Mean Corpuscular Hemoglobin 25.4 pg (28.0-34.0); Mean Corpuscular Volume 84.6 fl (81-99); Mean Platelet Volume 9.6 fL (7.4-10.4); Monocytes # 0.6 10^3/uL (0.2-0.9); Monocytes % 10.1 %; Neutrophils % 81.8 %; Nucleated Red Blood Cells % 0 %; Platelet Count 279 10^3/cmm (130-400); Red Blood Count 4.22 10^6/uL (4.1-5.3); Red Cell Distribution Width 17.6 % (12.1-15.1); White Blood Count 6.1 10^3/uL (4.0-10.0)
[2020-12-04 11:32] LABS: Anion Gap 12.5 (5-19); Blood Urea Nitrogen 29 mg/dL (8-23); Calcium 7.9 mg/dL (8.5-10.5); Carbon Dioxide 31 mmol/L (22-29); Chloride 99 mmol/L (98-107); Glucose 170 mg/dL (65-115); Magnesium 1.7 mg/dL (1.7-2.3); Osmolality Calculated 296 mOsm/kg (285-295); Potassium 4.5 mmol/L (3.5-5.1); Sodium 138 mmol/L (136-145); Troponin(5th) Baseline 20 ng/L (0-10)
--- NOTE | 2020-12-04 12:20 | PM.EVENT ---
Event Note Event Note: Responded to rapid response called overhead. When I arrived patient was laying on the ground. She was attempting to remove the oxygen from her face. From my understanding she was up with physical therapy when she began to feel dizzy, they sat her down and then laid her down. I did not get a sense that she had any specific injury regarding this process. At that point she became unresponsive, and had an episode of urination and defecation. Nursing did not feel a pulse and began CPR. From my understanding this might have gone on for 2 minutes or less prior to it being discontinued. When I saw the patient she was alert, and able to answer few questions. She denied any pain in her chest, headache, or current dizziness. She reported no abdominal pain. We proceeded to place her in bed, and resumed her cardiac monitoring. Unfortunately she was unhooked during the time of this episode. Previous telemetry monitoring demonstrated atrial fibrillation, with controlled rate and from what I can determine she had this rhythm previously in 2018 as well. Laboratory was ordered which had no particular concerns. Magnesium level was low limits of normal so 1 g of magnesium will be given IV. A CT head noncontrast has been ordered although it is likely to be low yield. I suspect the patient had a vasovagal episode, but due to the fact that she could have been pulseless and did receive CPR, has a history of coronary disease with ejection fraction that is changed from previous, I believe it necessary to monitor her in the ICU at least throughout today and tonight for closer monitoring. At this point I will also perform a troponin series. Initial troponin is likely at her baseline elevation. Will fully anticoagulant if CT head without concerns.
[2020-12-04] MEDS: acetaminophen 325 mg Tablet 650 MG PO (12:26)
--- NOTE | 2020-12-04 12:29 | ECG_ITS ---
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 Measurements Intervals [place] Rate: 87 P: [place]: QRS: -11 QRSD: 106 T: 69 QT: 379 QTc: 457 Interpretive Statements ATRIAL FIBRILLATION INCOMPLETE RIGHT BUNDLE BRANCH BLOCK [90+ ms QRS DURATION, TERMINAL R IN V1/V2, 40+ ms S IN I/aVL/V4/V5/V6] NONSPECIFIC ST & T-WAVE ABNORMALITY ABNORMAL RHYTHM ECG Compared to ECG 12/04/2020 10:51:33 Incomplete right bundle-branch block now present T-wave abnormality now present Left-axis deviation no longer present Right bundle-branch block no longer present Myocardial infarct finding no longer present Electronically Signed On 12-04-2020 19:40:34 CDT by Delmis Camilo M.D. [id number]
[2020-12-04 13:24] LABS: Troponin 5 2HR 22.86 ng/L (0-10); Troponin 5 2HR Delta 2.86 ABS# (0-10)
--- NOTE | 2020-12-04 16:29 | ECG_ITS ---
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 Measurements Intervals [place] Rate: 92 P: [place]: QRS: -10 QRSD: 106 T: 98 QT: 374 QTc: 464 Interpretive Statements ATRIAL FIBRILLATION NONSPECIFIC ST & T-WAVE ABNORMALITY Compared to ECG 12/04/2020 13:47:30 Incomplete right bundle-branch block no longer present T-wave abnormality still present Electronically Signed On 12-04-2020 19:41:57 CDT by Delmis Camilo M.D. [email or web address] [email or web address].[email or web address]/[id number]
[2020-12-04 17:07] LABS: Glucose Point of Care 180 mg/dL (70-110)
[2020-12-04] MEDS: dexamethasone 10 mg/mL INJ 6 MG IVP (17:54)
[2020-12-04] MEDS: remdesivir 100 MG in sodium chloride 0.9% (100 ml) 100 ML IV (17:56)
--- NOTE | 2020-12-04 18:01 | PC.NURSE ---
Transferred to icu Via bed.
--- NOTE | 2020-12-04 18:03 | PC.NURSE ---
to ct scan dept for head ct w/o contrast.
[2020-12-04 18:08] LABS: Glucose Point of Care 119 mg/dL (70-110)
[2020-12-04 20:22] LABS: Glucose Point of Care 217 mg/dL (70-110)
[2020-12-04] MEDS: trazodone 50 mg Tablet PO (20:34)
[2020-12-04] MEDS: pantoprazole 40 mg SDV IVP (20:34)
[2020-12-04] MEDS: cefTRIAXone 1,000 MG in sodium chloride 0.9% (plus) 50 ML 100 MG IV (20:34)
[2020-12-04] MEDS: enoxaparin 40 mg/0.4 mL Syringe SUBCUT (20:34)
[2020-12-04] MEDS: enoxaparin 60 mg/0.6 mL Syringe SUBCUT (21:18)
[2020-12-04] MEDS: enoxaparin 100 mg/mL Syringe 60 MG SUBCUT (21:21)
[2020-12-05] VITALS (25 sets, daily range): BP systolic 105–136; BP diastolic 67–105; PULSE 79–102; RESP 13–26; TEMP 36.4–36.8; O2SAT 86–93
[2020-12-05] MEDS: ipratropium-albuterol 3 mL Neb INHALATION ×4 (02:58→20:10)
[2020-12-05 05:16] LABS: Basophils % 0.2 %; Hemoglobin 10.4 g/dL (11.5-15.3); Lymphocytes # 0.2 10^3/uL (0.8-4.8); Lymphocytes % 3.6 %; Mean Corpuscular HGB Conc 30.6 g/dL (30.0-36.0); Mean Corpuscular Hemoglobin 25.4 pg (28.0-34.0); Mean Corpuscular Volume 82.9 fl (81-99); Mean Platelet Volume 9.5 fL (7.4-10.4); Monocytes # 0.2 10^3/uL (0.2-0.9); Monocytes % 4.5 %; Neutrophils # 4.84 10^3/uL (1.8-7.7); Neutrophils % 90.4 %; Nucleated Red Blood Cells % 0 %; Platelet Count 280 10^3/cmm (130-400); Red Cell Distribution Width 17.5 % (12.1-15.1); White Blood Count 5.4 10^3/uL (4.0-10.0)
[2020-12-05] MEDS: metoprolol succinate ER (24 HR) 50 mg Tablet PO ×2 (05:58→18:01)
[2020-12-05 07:50] LABS: Glucose Point of Care 219 mg/dL (70-110)
[2020-12-05] MEDS: FUROsemide 40 mg Tablet PO (08:01)
[2020-12-05] MEDS: atorvastatin 40 mg Tablet 20 MG PO (08:01)
[2020-12-05] MEDS: clopidogrel 75 mg Tablet PO (08:02)
[2020-12-05] MEDS: allopurinol 100 mg Tablet PO ×2 (08:02→18:01)
[2020-12-05] MEDS: duloxetine 60 mg Capsule PO ×2 (08:02→18:01)
[2020-12-05] MEDS: lisinopril 20 mg Tablet PO (08:02)
[2020-12-05] MEDS: amlodipine 5 mg Tablet PO (08:02)
[2020-12-05] MEDS: potassium chloride ER 20 mEq Tablet PO (08:02)
[2020-12-05] MEDS: enoxaparin 120 mg/0.8 mL Syringe 110 MG SUBCUT ×2 (08:02→21:11)
[2020-12-05] MEDS: gabapentin 400 mg Capsule PO ×3 (08:03→21:12)
[2020-12-05 08:11] LABS: Alanine Aminotransferase 14 U/L (0-33); Albumin Level 2.8 g/dL (3.5-5.2); Alkaline Phosphatase 60 IU/L (35-105); Anion Gap 18.1 (5-19); Aspartate Amino Transferase 16 U/L (0-32); Blood Urea Nitrogen 33 mg/dL (8-23); Calcium 8.1 mg/dL (8.5-10.5); Carbon Dioxide 25 mmol/L (22-29); Chloride 99 mmol/L (98-107); Globulin 3.3 g/dL (1.3-4.6); Glucose 217 mg/dL (65-115); Magnesium 1.8 mg/dL (1.7-2.3); Osmolality Calculated 300 mOsm/kg (285-295); Potassium 4.1 mmol/L (3.5-5.1); Sodium 138 mmol/L (136-145); Total Bilirubin 0.3 mg/dL (0.15-1.2); Total Protein 6.1 g/dL (6.6-8.7)
[2020-12-05 12:00] LABS: Glucose Point of Care 138 mg/dL (70-110)
--- NOTE | 2020-12-05 13:20 | PC.SOCIAL ---
IMM update IMM updated with patient. Verbalized an understanding. Initialed,dated, timed and placed in chart.
--- NOTE | 2020-12-05 14:34 | PC.RESP ---
RT Shift Note Frequent safety and respiratory rounds continue. Orders completed as indicated. Patient monitored pre and post treatments throughout shift. Patient tolerated treatments appropriately. Condition improved. Patient and/or food service representative educated on respiratory treatment and medications. Patient and/or food service representative verbalized understanding. Will continue to monitor patient progress.
--- NOTE | 2020-12-05 16:13 | PC.NURSE ---
Transfer Report called to Jennifer SCHULTZ on 2A. Pt transferred to 2A from ICU via wheelchair by SCOTTY Hassan. Pt in good condition when leaving the unit.
--- NOTE | 2020-12-05 16:28 | P.PN_ITS ---
Subjective Subjective: Interval history: 70 year old female with a past medical history of CAD status post stenting x1, history of COPD, history of secondhand smoke exposure, CKD, hyperlipidemia, gout, peripheral neuropathy, ike-zzjdfjp-feahkypam type 2 diabetes mellitus, who presented to [facility] due to complaints of shortness of breath Diagnosed with Covid pneumonia. She was transferred to the ICU yesterday. Today she reports some chest wall discomfort. She is being transferred back to the floor today. Otherwise breathing about the same Vitals/I&O/Wt Last Vital Signs Temp 97.9 F 12/05/20 13:00 Pulse 89 12/05/20 16:00 Resp 18 12/05/20 16:00 BP 123/86 12/05/20 13:00 Pulse Ox 86 L 12/05/20 16:08 12/05/20 12/05/20 12/05/20 06:59 14:59 22:59 Intake Total 0 / 442 350 / 350 Output Total 90 / 90 Balance 0 / 242 260 / 260 Physical Exam Const: COMMON NORMALS: no acute distress and patient oriented x3 Chest: COMMONS NORMALS: normal inspection of the chest Resp: COMMON NORMALS: normal respiratory effort and No retractions Cardio: COMMON NORMALS: regular rate and regular rhythm RATE: regular rate RHYTHM: regular rhythm GI: COMMON NORMALS: Soft to palpation and non-tender PALPATION: Yes Soft to palpation Extremity: COMMON NORMALS: normal to inspection Neuro: COMMON NORMALS: patient oriented x3 and moves all extremities Psych: COMMON NORMALS: mental status grossly normal Data : 12/05/20 04:29 12/05/20 04:29 A&P Assessment and plan (1) Acute respiratory failure: Status: Acute Qualifiers: Respiratory failure complication: hypoxia Qualified Code(s): J96.01 - Acute respiratory failure with hypoxia (2) Pneumonia due to COVID-19 virus: Status: Acute (3) Non-insulin dependent diabetes mellitus: Status: Acute (4) HLD (hyperlipidemia): Status: Acute (5) COPD (chronic obstructive pulmonary disease): Status: Acute (6) HTN (hypertension): Status: Acute (7) ASHD (arteriosclerotic heart disease): Status: Acute Additional A&P Information Covid 19 Pneunomia --Oxygen, nebs --remdesivir until 12/07 --continue Decadron --continue ceftriaxone --trend inflammatory markers HTN --stable --continue Norvasc, Lisinopril, Metoprolol, lasix DM --monitor FSBS, ssi CAD --continue statin, plavix, asa Dispo: transfer out of ICU DVT: Lovenox Attestations Medical Necessity Statement*: Lyndsey Franco's hospital stay will require greater than 2 midnights for covid pneumonia Coding Level of Care Code Acute Director On [employer] for [employer] Fwd Diagnoses Acute respiratory failure J96.01 Respiratory failure complication: hypoxia Pneumonia due to COVID-19 virus U07.1; J12.82 Non-insulin dependent diabetes mellitus HLD (hyperlipidemia) E78.5 COPD (chronic obstructive pulmonary disease) J44.9 HTN (hypertension) I10 ASHD (arteriosclerotic heart disease) I25.10
--- NOTE | 2020-12-05 16:38 | PC.NURSE ---
Received report from Vilma Murillo RN. Patient arrived to floor via wheelchair. Pt vital signs are stable, pt noted to be in atrial fibrillation and has a prior history of this. Lung sounds are clear but diminished. Patient says her ribs were hurting earlier but are much better now. pt has been oriented to room and surroundings and educated civil division commander deputy sheriff sanchez use.
[2020-12-05 17:30] LABS: Glucose Point of Care 132 mg/dL (70-110)
[2020-12-05] MEDS: remdesivir 100 MG in sodium chloride 0.9% (100 ml) 100 ML IV (18:01)
[2020-12-05] MEDS: dexamethasone 10 mg/mL INJ 6 MG IVP (19:29)
[2020-12-05] MEDS: budesonide 0.5 mg/2 mL Neb INHALATION (20:10)
[2020-12-05] MEDS: trazodone 50 mg Tablet PO (21:12)
[2020-12-05] MEDS: cefTRIAXone 1,000 MG in sodium chloride 0.9% (plus) 50 ML 100 MG IV (21:13)
--- NOTE | 2020-12-05 21:21 | PC.RESP ---
RT Shift Note Frequent safety and respiratory rounds continue. Orders completed as indicated. Patient monitored pre and post treatments throughout shift. Patient [Did.] tolerate treatments appropriately. Condition .DidNotChange]. Patient and/or clearance representative educated on respiratory treatment and medications. Patient and/or clearance representative [ResponseToTeaching]. Will continue to monitor patient progress.
--- NOTE | 2020-12-05 21:21 | PC.RESP ---
RT Shift Note Frequent safety and respiratory rounds continue. Orders completed as indicated. Patient monitored pre and post treatments throughout shift. Patient [Did.] tolerate treatments appropriately. Condition .DidNotChange]. Patient and/or outside sales representative insurance educated on respiratory treatment and medications. Patient and/or outside sales representative insurance [ResponseToTeaching]. Will continue to monitor patient progress.
[2020-12-05 21:23] LABS: Glucose Point of Care 156 mg/dL (70-110)
[2020-12-05] MEDS: pantoprazole 40 mg SDV IVP (21:53)
[2020-12-06] VITALS (11 sets, daily range): BP systolic 95–128; BP diastolic 61–84; PULSE 79–105; RESP 14–20; TEMP 36.7–36.9; O2SAT 91–94
[2020-12-06] MEDS: metoprolol succinate ER (24 HR) 50 mg Tablet PO ×2 (05:58→18:05)
[2020-12-06 06:54] LABS: Glucose Point of Care 292 mg/dL (70-110)
[2020-12-06] MEDS: ipratropium-albuterol 3 mL Neb INHALATION ×3 (08:47→20:30)
[2020-12-06] MEDS: budesonide 0.5 mg/2 mL Neb INHALATION ×2 (08:47→22:47)
[2020-12-06] MEDS: ascorbic acid 500 mg Tablet PO (09:47)
[2020-12-06] MEDS: cholecalciferol (vitamin D3) 1,000 unit Tablet 1000 UNIT PO (09:47)
[2020-12-06] MEDS: zinc gluconate 50 mg Tablet PO (09:47)
[2020-12-06] MEDS: allopurinol 100 mg Tablet PO ×2 (09:47→18:05)
[2020-12-06] MEDS: duloxetine 60 mg Capsule PO ×2 (09:48→18:05)
[2020-12-06] MEDS: FUROsemide 40 mg Tablet PO (09:48)
[2020-12-06] MEDS: gabapentin 400 mg Capsule PO ×3 (09:48→21:22)
[2020-12-06] MEDS: clopidogrel 75 mg Tablet PO (09:48)
[2020-12-06] MEDS: potassium chloride ER 20 mEq Tablet PO (09:48)
[2020-12-06] MEDS: atorvastatin 40 mg Tablet 20 MG PO (09:48)
[2020-12-06] MEDS: enoxaparin 120 mg/0.8 mL Syringe 110 MG SUBCUT ×2 (09:49→21:21)
[2020-12-06 11:55] LABS: Glucose Point of Care 223 mg/dL (70-110)
--- NOTE | 2020-12-06 13:33 | PM.PN ---
Subjective Subjective: Interval history: 70 year old female with a past medical history of CAD status post stenting x1, history of COPD, history of secondhand smoke exposure, CKD, hyperlipidemia, gout, peripheral neuropathy, hyv-dooftfy-jntpnwrif type 2 diabetes mellitus, who presented to [facility] due to complaints of shortness of breath Diagnosed with Covid pneumonia. She was transferred to the ICU for observation. breathing about the same. on 5L denies chest pain, fevers Vitals/I&O/Wt Last Vital Signs Temp 98.5 F 12/06/20 11:09 Pulse 81 12/06/20 11:09 Resp 18 12/06/20 11:09 BP 128/77 12/06/20 11:09 Pulse Ox 93 12/06/20 11:09 12/05/20 12/06/20 12/06/20 22:59 06:59 14:59 Intake Total 150 / 500 600 / 600 Output Total 200 / 290 Balance -50 / 210 600 / 600 Physical Exam Const: COMMON NORMALS: no acute distress and patient oriented x3 Chest: COMMONS NORMALS: normal inspection of the chest Resp: COMMON NORMALS: normal respiratory effort and No retractions Cardio: COMMON NORMALS: regular rate and regular rhythm RATE: regular rate RHYTHM: regular rhythm GI: COMMON NORMALS: Soft to palpation and non-tender PALPATION: Yes Soft to palpation Extremity: COMMON NORMALS: normal to inspection Neuro: COMMON NORMALS: patient oriented x3 and moves all extremities Psych: COMMON NORMALS: mental status grossly normal Data : 12/05/20 04:29 12/05/20 04:29 A&P Assessment and plan (1) Acute respiratory failure: Status: Acute Qualifiers: Respiratory failure complication: hypoxia Qualified Code(s): J96.01 - Acute respiratory failure with hypoxia (2) Pneumonia due to COVID-19 virus: Status: Acute (3) Non-insulin dependent diabetes mellitus: Status: Acute (4) HLD (hyperlipidemia): Status: Acute (5) COPD (chronic obstructive pulmonary disease): Status: Acute (6) HTN (hypertension): Status: Acute (7) ESR raised: Status: Acute Additional A&P Information Covid 19 Pneunomia --Oxygen, nebs --remdesivir until 12/07 --continue Decadron --continue ceftriaxone --trend inflammatory markers HTN --stable --continue Norvasc, Lisinopril, Metoprolol, lasix DM --monitor FSBS, ssi CAD --continue statin, plavix, asa Dispo: likely DC after remdesivir DVT: Lovenox Attestations Medical Necessity Statement*: Lyndsey Franco's hospital stay will require greater than 2 midnights for covid 19 Coding Level of Care Code Acute Restorative Aide for [facility] Fwd Diagnoses Acute respiratory failure J96.01 Respiratory failure complication: hypoxia Pneumonia due to COVID-19 virus U07.1; J12.82 Non-insulin dependent diabetes mellitus HLD (hyperlipidemia) E78.5 COPD (chronic obstructive pulmonary disease) J44.9 HTN (hypertension) I10 ESR raised R70.0
[2020-12-06 17:16] LABS: Glucose Point of Care 112 mg/dL (70-110)
[2020-12-06] MEDS: remdesivir 100 MG in sodium chloride 0.9% (100 ml) 100 ML IV (18:11)
[2020-12-06] MEDS: dexamethasone 10 mg/mL INJ 6 MG IVP (18:25)
[2020-12-06] MEDS: pantoprazole 40 mg SDV IVP (21:00)
[2020-12-06 21:03] LABS: Glucose Point of Care 192 mg/dL (70-110)
[2020-12-06] MEDS: cefTRIAXone 1,000 MG in sodium chloride 0.9% (plus) 50 ML 100 MG IV (21:21)
[2020-12-06] MEDS: trazodone 50 mg Tablet PO (21:22)
--- NOTE | 2020-12-06 22:49 | PC.RESP ---
RT Shift Note Frequent safety and respiratory rounds continue. Orders completed as indicated. Patient monitored pre and post treatments throughout shift. Patient [Did.] tolerate treatments appropriately. Condition [.DidNotChange]. Patient and/or hvac sales representative educated on respiratory treatment and medications. Patient and/or hvac sales representative [ResponseToTeaching]. Will continue to monitor patient progress.
[2020-12-07] VITALS (7 sets, daily range): BP systolic 100–127; BP diastolic 63–81; PULSE 77–91; RESP 16–21; TEMP 36.7; O2SAT 91–96
[2020-12-07] MEDS: metoprolol succinate ER (24 HR) 50 mg Tablet PO (06:09)
[2020-12-07 06:47] LABS: Glucose Point of Care 188 mg/dL (70-110)
[2020-12-07] MEDS: atorvastatin 40 mg Tablet 20 MG PO (08:22)
[2020-12-07] MEDS: lisinopril 20 mg Tablet PO (08:22)
[2020-12-07] MEDS: enoxaparin 120 mg/0.8 mL Syringe 110 MG SUBCUT (08:22)
[2020-12-07] MEDS: gabapentin 400 mg Capsule PO (08:25)
[2020-12-07] MEDS: clopidogrel 75 mg Tablet PO (08:25)
[2020-12-07] MEDS: allopurinol 100 mg Tablet PO (08:25)
[2020-12-07] MEDS: FUROsemide 40 mg Tablet PO (08:26)
[2020-12-07] MEDS: ascorbic acid 500 mg Tablet PO (08:26)
[2020-12-07] MEDS: zinc gluconate 50 mg Tablet PO (08:26)
[2020-12-07] MEDS: potassium chloride ER 20 mEq Tablet PO (08:26)
[2020-12-07] MEDS: amlodipine 5 mg Tablet PO (08:43)
[2020-12-07] MEDS: duloxetine 60 mg Capsule PO (08:44)
[2020-12-07] MEDS: cholecalciferol (vitamin D3) 1,000 unit Tablet 1000 UNIT PO (08:44)
--- NOTE | 2020-12-07 08:50 | PC.CHAP ---
Pastoral Care Encounter/Spiritual Assessment Type of Contact [] Declined in house cra visit [] Patient/Family/Request visit [] Outpatient visit [] Follow-up visit [] Physician referral [] Code/Alert [x] Routine visit [] Staff referral [] Actively dying [] Patient sleeping [] Family support [] [] Out of room [] Palliative care [] [] Receiving care in room [] Pre-surgical visit [] Trauma [] Long length of stay [] ICU visit [x] Other: 2a Relational/Emotional Strength [] Patient feels connected with others/family/visitors/staff [] Distress [] Loneliness/isolation [] Abandonment Spirituality of Patient [] Person of Ana [] Attends Hinduism of their Ana [] Believes in Prayer [] Reads Bible or Rastafarian materials [] There are Spiritual issues to be addressed [employer] Interventions [] Prayer [] Active listening [] Non-anxious presence [] Spiritual/emotional support [] Crisis/trauma care [] Spiritual counseling [] Bereavement support [] Provided bereavement packet [] Provided Bible/devotional materials [] Provided toy/stuffed animal, coloring book to patient or family member [] Provided Communion [] Anointing/[place] [] Salvation [] Completed spiritual assessment [] Other: Impact on Illness or Injury [] Angry [] Fearful [] Anxious [] Often cries [] Exhaustion [] Unable to work [] Unable to attend spiritism [] Unable to walk/stand [] Unable to read [] Unable to drive [] Unable to eat/drink [] Unable to sleep [] Unable to be with family [] Patient intubated [] Other: Summary Time spent with patient Pastoral Care Encounter/Spiritual Assessment Type of Contact [] Declined in house cra visit [] Patient/Family/Request visit [] Outpatient visit [] Follow-up visit [] Physician referral [] Code/Alert [] Routine visit [] Staff referral [] Actively dying [] Patient sleeping [] Family support [] [] Out of room [] Palliative care [] [] Receiving care in room [] Pre-surgical visit [] Trauma [] Long length of stay [] ICU visit [] Other: Relational/Emotional Strength [] Patient feels connected with others/family/visitors/staff [] Distress [] Loneliness/isolation [] Abandonment Spirituality of Patient [x] Person of Ana [] Attends Hinduism of their Ana [] Believes in Prayer [] Reads Bible or Rastafarian materials [] There are Spiritual issues to be addressed Utility Lineman Interventions [x] Prayer [] Active listening [] Non-anxious presence [] Spiritual/emotional support [] Crisis/trauma care [] Spiritual counseling [] Bereavement support [] Provided bereavement packet [] Provided Bible/devotional materials [] Provided toy/stuffed animal, coloring book to patient or family member [] Provided Communion [] Anointing/[place] [] Salvation [x] Completed spiritual assessment [] Other: Impact on Illness or Injury [] Angry [] Fearful [] Anxious [] Often cries [] Exhaustion [] Unable to work [] Unable to attend spiritism [] Unable to walk/stand [] Unable to read [] Unable to drive [] Unable to eat/drink [] Unable to sleep [] Unable to be with family [] Patient intubated [] Other: Summary have visited with patient everyday.. also in ICU... praying for healing... resting served breakfast Time spent with patient 5 min
[2020-12-07] MEDS: budesonide 0.5 mg/2 mL Neb INHALATION (09:15)
[2020-12-07] MEDS: ipratropium-albuterol 3 mL Neb INHALATION ×2 (09:16→15:31)
[2020-12-07 11:40] LABS: Glucose Point of Care 144 mg/dL (70-110)
--- NOTE | 2020-12-07 13:45 | P.DS_ITS ---
Discharge Providers Date of Admission: 11/28/20 18:06 Date of Discharge: December 07, 2020 Attending Provider at Admission: Thomas Coleman MD Attending Provider at Discharge: Lillie Hathaway MD Primary Care Provider: Scar Gomez Diagnoses at Discharge Discharge Diagnosis (1) Acute respiratory failure: Status: Acute Qualifiers: Respiratory failure complication: hypoxia Qualified Code(s): J96.01 - Acute respiratory failure with hypoxia (2) Pneumonia due to COVID-19 virus: Status: Acute (3) Non-insulin dependent diabetes mellitus: Status: Acute (4) HLD (hyperlipidemia): Status: Acute (5) COPD (chronic obstructive pulmonary disease): Status: Acute (6) HTN (hypertension): Status: Acute (7) ESR raised: Status: Acute Reason for Visit Reason for Visit: COVID +; RESP DISTRESS Hospital Course Hospital Course HPI done by Dr. Thomas Solorio Gina Franco is a 70 year old female with a past medical history of CAD status post stenting x1, history of COPD, history of secondhand smoke exposure, CKD, hyperlipidemia, gout, peripheral neuropathy, suu-suobuyy-apbqbovxz type 2 diabetes mellitus, who presents to [facility] due to complaints of shortness of breath. Patient tells me that about a week ago, she started developing shortness of breath, just not feeling well, she tells that she felt sick as a dog, intermittent fevers, chills, no nausea, no vomiting, no diarrhea, she presented to her primary care provider roughly 2 days ago, she tested positive for Covid. Since then she has been developing more progressive shortness of breath, fatigue, malaise, that she decided to come to the emergency room. In the emergency room, she was found to be hypoxic requiring 4 L oxygen, CTA of the chest showed groundglass opacities in both lungs, WBC 4.2, CRP, 34, pro-Indira 0.04 Hospital course: Patient was admitted for management of acute hypoxic restaurant failure related to COVID-19, she received Decadron and remdesivir regimen on the day of discharge she was requiring 5 L nasal cannula on ambulation, PT evaluated her and recommended home health services with plan to transition to outpatient services, during her hospitalization antibiotics were used for empirical coverage cultures were sterile, clinical course was notable for gradual recovery in 9 days, CTA ruled out PE, did show suspicion for mild cirrhosis for which she will need to follow-up with PCP, pericardial cyst also noted 3.[address]/CT angio chest PE protcl [id number] IMPRESSION: 1. Multiple, bilateral areas of ground-glass opacification and crazy paving . The findings are commonly seen with COVID-19 pneumonia. Per report, the patient is COVID-19 positive. Recommend followup chest imaging to insure resolution of these findings. 2. No evidence for pulmonary embolism. 3. Mildly nodular contour of the under surface of the liver suspicious for mild cirrhosis. 4. Small bilateral pleural effusions. 5. Incidental/nonacute findings are listed in the report. Physical Exam Narrative: EXAM NARRATIVE: no acute distress and patient oriented x3 Chest: COMMONS NORMALS: normal inspection of the chest Resp: COMMON NORMALS: normal respiratory effort and No retractions Cardio: COMMON NORMALS: regular rate and regular rhythm RATE: regular rate RHYTHM: regular rhythm GI: COMMON NORMALS: Soft to palpation and non-tender PALPATION: Yes Soft to palpation Extremity: COMMON NORMALS: normal to inspection Neuro: COMMON NORMALS: patient oriented x3 and moves all extremities Psych: COMMON NORMALS: mental status grossly normal Discharge Data Data Completed and Pending: Completed Studies During Hospitalization Category Date Time Status CT angio chest PE protcl [id number] Stat Cat Scan 11/28/20 15:[address] head wo con* 7 0450 Urgent Cat Scan 12/04/20 10:51 Completed XR chest 1V trish ble [id number] Routine Exams 11/29/20 07:00 Completed CV. echo complete * [id number] Routine Ultrasound 12/01/20 10:35 Completed Pending at discharge Category Date Time Status Immunochemical Fe indira OCB Routine Lab 11/29/20 13:[address] at Lab 11/28/20 17:53 Uncollected Labs from last 24 hours 12/07/20 12/07/20 12/06/20 11:30 06:41 20:48 POC Glucose 144 H 188 H 192 H 12/06/20 17:05 POC Glucose 112 H Vitals: Last Vital Signs Temp 98.1 F 12/07/20 03:56 Pulse 91 12/07/20 12:00 Resp 17 12/07/20 12:00 BP 113/65 12/07/20 12:00 Pulse Ox 96 12/07/20 12:00 Discharge Plan Discharge Patient Disposition: Home Condition: Stable Prescriptions: Continued buspirone 15 mg tablet 15 mg PO BID PRN (Reason: Anxiety) RF: 0 lisinopril 40 mg tablet 40 mg PO DAILY RF: 0 lovastatin 20 mg tablet 20 mg PO DAILY RF: 0 aspirin [Adult Aspirin Regimen] 81 mg tablet,delayed release (DR/EC) 81 mg PO DAILY RF: 0 clopidogrel 75 mg tablet 75 mg PO DAILY RF: 0 allopurinol 100 mg tablet 100 mg PO BID RF: 0 metformin 500 mg tablet 500 mg PO DAILY RF: 0 trazodone 50 mg tablet 50 mg PO BEDTIME RF: 0 metoprolol succinate 50 mg tablet extended release 24 hr 50 mg PO BID RF: 0 prednisone 20 mg Tablet 20 mg PO BID RF: 0 gabapentin 400 mg capsule 400 mg PO TID RF: 0 alprazolam 0.5 mg tablet 0.5 mg PO DAILY PRN (Reason: Anxiety) RF: 0 albuterol sulfate 90 mcg/actuation HFA aerosol inhaler 2 puff INHALATION Q6H PRN (Reason: Shortness Of Breath) RF: 0 duloxetine 60 mg capsule,delayed release(DR/EC) 60 mg PO BID RF: 0 ibuprofen 800 mg tablet 800 mg PO TID PRN (Reason: Pain) RF: 0 cholecalciferol (vitamin D3) 1,250 mcg (50,000 unit) capsule 50,000 unit PO Q7D RF: 0 Discharge Orders: Discharge Order (Routine); Ordered 12/07/20 Ordered By: Lillie Hathaway Other Ambulatory Orders: DME: Oxygen (Order) Location: None Selected Ordered By: Lillie Htahaway Physical Therapy Eval and Treat Outpatient (Order) Timeframe: 1 Week Facility: [facility] - Location: Physical Therapy Ordered By: Lillie Hathaway Discharge Diet: Cardiac Discharge Activity: Increase activity as tolerated and As per PT/OT instructions Patient Instructions: Opioid Safety Discharge Attestations Time Spent in Discharge Care*: less than 30 min Quality Metrics Clinical Quality Measures During this hospital stay, did patient experience: None Coding Level of Care Code Acute Chg FW DC note Diagnoses Acute respiratory failure J96.01 Respiratory failure complication: hypoxia Pneumonia due to COVID-19 virus U07.1; J12.82 Non-insulin dependent diabetes mellitus HLD (hyperlipidemia) E78.5 COPD (chronic obstructive pulmonary disease) J44.9 HTN (hypertension) I10 ESR raised R70.0
--- NOTE | 2020-12-07 15:33 | PC.RESP ---
RT Shift Note Frequent safety and respiratory rounds continue. Orders completed as indicated. Patient monitored pre and post treatments throughout shift. Patient [Did.] tolerate treatments appropriately. Condition [.DidNotChange]. Patient and/or premium service representative educated on respiratory treatment and medications. Patient and/or premium service representative [verbalized understanding]. Will continue to monitor patient progress.
--- NOTE | 2020-12-07 16:14 | PC.SOCIAL ---
IMM update pg 2 of IMM reviewed w/ patient and copy provided.
== END 2020-12-07 17:30 | disposition home or self-care (01) | DRG 177 ==
LOC: ER 18:33 → MS 2A 18:47 → ICU 12-04 17:30 → MS 2A 12-05 16:14
PROVIDERS: Internal Medicine; Admitting Provider Family Medicine; Emergency Provider Family Medicine; PCP Family Medicine; Visit Provider Internal Medicine
DX: U07.1 COVID-19 (principal); J12.82 Pneumonia due to coronavirus disease 2019; J96.01 Acute respiratory failure with hypoxia; I25.10 Atherosclerotic heart disease of native coronary artery without angina pectoris; Z95.5 Presence of coronary angioplasty implant and graft; J44.9 Chronic obstructive pulmonary disease, unspecified; E78.5 Hyperlipidemia, unspecified; E11.22 Type 2 diabetes mellitus with diabetic chronic kidney disease; I12.9 Hypertensive chronic kidney disease with stage 1 through stage 4 chronic kidney disease, or unspecified chronic kidney disease; N18.9 Chronic kidney disease, unspecified; Z98.84 Bariatric surgery status; Z77.22 Contact with and (suspected) exposure to environmental tobacco smoke (acute) (chronic); M10.9 Gout, unspecified; E11.42 Type 2 diabetes mellitus with diabetic polyneuropathy; D63.1 Anemia in chronic kidney disease; I07.1 Rheumatic tricuspid insufficiency; I27.20 Pulmonary hypertension, unspecified; I48.91 Unspecified atrial fibrillation; E83.42 Hypomagnesemia; Z79.51 Long term (current) use of inhaled steroids; Z79.52 Long term (current) use of systemic steroids; Z79.84 Long term (current) use of oral hypoglycemic drugs; Z79.02 Long term (current) use of antithrombotics/antiplatelets; Z79.82 Long term (current) use of aspirin; R55 Syncope and collapse; K74.60 Unspecified cirrhosis of liver; Q24.8 Other specified congenital malformations of heart
CPT/HCPCS: 36415; 36416; 36600; 70450; 71045; 71275; 80048; 80051; 80053; 82330; 82550; 82607; 82728; 82746; 82803; 82805; 82962; 83540; 83605; 83735; 83880; 84100; 84145; 84443; 84484; 85025; 85378; 85384; 85610; 86140; 87040; 87635; 93005; 93306; 94640; 96365; 96367; 96372; 97116; 97161; 97165; 97530; 99285; C9113; J0456; J0696; J1100; J1650; J1815; J1940; J3475; J3535; J7050; J7626; Q9967

== ENCOUNTER 2020-12-18 12:23 | Outpatient (RCR) | payer MEDICARE, MEDICAID, SELFPAY | END 2021-01-14 23:59 | disposition home or self-care (01) | LOC: SPT 12:23 | PROVIDERS: PCP Family Medicine; Referring Provider Internal Medicine; Visit Provider Internal Medicine | DX: R53.81 Other malaise (principal) | CPT/HCPCS: 97161 ==

== ENCOUNTER 2022-03-14 23:25 | Inpatient (IN) | payer MEDICARE, MEDICAID, SELFPAY ==
[2022-03-14 23:27] VITALS: BP 164/92; PULSE 134; RESP 24; TEMP 39; O2SAT 88; BMI 30.7
--- NOTE | 2022-03-14 23:30 | XRR_ITS ---
PROCEDURE INFORMATION: Exam: XR Chest Exam date and time: 03/15/2022 12:48 AM Age: 71 years old Clinical indication: Fever and shortness of breath; Prior surgery; Surgery type: Coronary stent; Patient HX: Severe SOB with fever. History of copd. TECHNIQUE: Imaging protocol: Radiologic exam of the chest. Views: 1 view. COMPARISON: CR XR chest 1V portable [id number] 11/29/2020 5:27 AM FINDINGS: Lungs: Mild pulmonary vascular congestion. Patchy bilateral ground-glass airspace opacities reflecting alveolar edema and/or pneumonic infiltrates. Pleural spaces: Unremarkable. No pleural effusion. No pneumothorax. Heart/Mediastinum: Cardiomegaly. Bones/joints: Unremarkable. XR/XR chest 1V portable [id number] IMPRESSION: 1. Cardiomegaly. 2. Mild pulmonary vascular congestion. 3. Patchy bilateral ground-glass airspace opacities reflecting alveolar edema and/or pneumonic infiltrates.
--- NOTE | 2022-03-14 23:34 | ED_ITS ---
HPI - SOB/Dyspnea General: Chief Complaint: Shortness of Breath/Dyspnea Stated Complaint: Resp Distress Time Seen by Provider: 03/14/22 23:27 Source: EMS Mode of arrival: EMS Limitations: no limitations History of Present Illness: HPI Narrative: 71-year-old female who states that she has had cough congestion fever body aches for the last 3 days she states she has had sick contact she is unsure with what. Patient is in distress here EMS states that she was in the 80s on room air she does not wear oxygen at home she is requiring 2 L here does have wheezing she has a history of A. fib she is in A. fib with RVR she denies any vomiting or diarrhea. Associated symptoms: Reports fever(s) and palpitations; Deny abdominal pain, nausea or vomiting Review of Systems Const: Reports: fever(s) and chills Eyes: Denies: blurry vision or eye discomfort ENMT: Denies: throat pain or dental pain Card: Reports: palpitations and irregular heart rhythm Resp: Reports: dyspnea, non-productive cough and wheezing GI: Denies: abdominal pain, nausea, vomiting or diarrhea : Denies: dysuria Musc: Denies: neck pain or back pain Skin/Breast: Denies: rash Neuro: Denies: headache(s) Psych: Denies: depression Billy/Lymph: Denies: easy bruising All/Imm: Denies: urticaria PFSH ED PFSH: Medical History ASHD (arteriosclerotic heart disease) CKD (chronic kidney disease) COPD (chronic obstructive pulmonary disease) ESR raised HLD (hyperlipidemia) HTN (hypertension) Non-insulin dependent diabetes mellitus Surgical History Hx of eye surgery Hx of gastric bypass Hx of heart artery stent Hx of tubal ligation Family History Mother CAD (coronary artery disease) Diabetes Father CAD (coronary artery disease) Diabetes Social History Smoking and tobacco status: never smoked Alcohol intake: never History of recent travel: No Physical Exam Const: COMMON NORMALS: patient oriented x3 GENERAL APPEARANCE: ill appearing HENMT: COMMON NORMALS: normocephalic and atraumatic HEAD & SCALP: normocephalic and atraumatic Eye: COMMON NORMALS: Equal, round and reactive pupils present and EOMs intact bilaterally PUPIL: Yes Equal, round and reactive pupils present Neck/C-Spine: COMMON NORMALS: full ROM and supple Chest: COMMONS NORMALS: normal inspection of the chest and normal palpation of entire chest wall Resp: EFFORT & INSPECTION: Yes tachypneic and Yes respiratory distress AUSCULTATION: wheezes Cardio: COMMON NORMALS: No murmurs present (Cardio) RATE: tachycardic RHYTHM: abnormal rhythm irregularly irregular GI: COMMON NORMALS: Normal to inspection, nondistended, normoactive bowel sounds present, Soft to palpation, non-tender and no masses PALPATION: Yes Soft to palpation Extremity: COMMON NORMALS: normal to inspection and full ROM Neuro: COMMON NORMALS: patient oriented x3, moves all extremities and no focal motor deficits Psych: COMMON NORMALS: mental status grossly normal, Normal thought process present and cooperative THOUGHT PROCESS: Normal thought process present Skin: COMMON NORMALS: no rashes or lesions noted and no wounds GENERAL SKIN EXAM: no rashes or lesions noted Course Vital Signs: Vital signs: Vital Signs Temperature 102.2 F H 03/14/22 23:27 Pulse Rate 97 03/15/22 00:10 Respiratory Rate 19 H 03/15/22 00:10 Blood Pressure 123/81 03/15/22 00:10 Pulse Oximetry 90 03/15/22 00:10 Oxygen Delivery Me thod 03/15/22 00:10 Oxygen Flow Rate 4 03/15/22 00:10 MDM - SOB/Dyspnea Medical Decision Making Patient presents with cough congestion BNP is elevated she is requiring 4 L x-ray shows a pulmonary edema versus pneumonia she does have a fever here her white count lactate is normal we will treat with antibiotics along with placing spoke to the hospitalist will admit. Lab Data 03/14/22 23:35 03/14/22 23:35 Labs/Radiology: Radiology Impressions Chest X-Ray 03/14/22 23:30 IMPRESSION: 1. Cardiomegaly. 2. Mild pulmonary vascular congestion. 3. Patchy bilateral ground-glass airspace opacities reflecting alveolar edema and/or pneumonic infiltrates. Laboratory Results WBC 8.1 10^3/uL (4.0-10.0) 03/14/22 23:35 RBC 3.90 10^6/uL (4.1-5.3) L 03/14/22 23:35 Hgb 11.7 g/dL (11.5-15.3) 03/14/22 23:35 Hct 37.5 % (37.0-47.0) 03/14/22 23:35 MCV 96.2 fl (81-99) 03/14/22 23: MCH 30.0 pg (28.0-34.0) 03/14/22 23:35 MCHC 31.2 g/dL (30.0-36.0) 03/14/22 23: RDW 16.4 % (12.1-15.1) H 03/14/22 23:35 Plt Count 267 10^3/cmm (130-400) 03/14/22 23:35 MPV 10.3 fL (7.4-10.4) 03/14/22 23:35 Neut % (Auto) 80.1 % 03/14/22 23:35 Lymph % (Auto) 10.8 % 03/14/22 23:35 Delta % (Auto) 7.9 % 03/14/22 23:35 Eos % (Auto) 0.6 % 03/14/22 23:35 Baso % (Auto) 0.2 % 03/14/22 23:35 Neut # (Auto) 6.50 10^3/uL (1.8-7.7) 03/14/22 23:35 Lymph # (Auto) 0.9 10^3/uL (0.8-4.8) 03/14/22 23:35 Delta # (Auto) 0.6 10^3/uL (0.2-0.9) 03/14/22 23:35 Eos # (Auto) 0.1 10^3/uL (0.0-0.8) 03/14/22 23:35 Baso # (Auto) 0.0 10^3/uL (0.0-0.1) 03/14/22 23:35 Nucleated RBC % (auto) 0 % 03/14/22 23: Nucleated RBCs # 0.0 /100WBC 03/14/22 23: Sodium 139 mmol/L (136-145) 03/14/22 23:35 Potassium 4.0 mmol/L (3.5-5.1) 03/14/22 23:35 Chloride 107 mmol/L (98-107) 03/14/22 23:35 Carbon Dioxide 22 mmol/L (22-29) 03/14/22 23:35 Anion Gap 14.0 (5-19) 03/14/22 23:35 BUN 23 mg/dL (8-23) 03/14/22 23:35 Creatinine 1.0 mg/dL (0.5-0.9) H 03/14/22 23:35 GFR Calculation Not Reportable 03/14/22 23:35 Glucose 155 mg/dL (65-115) H 03/14/22 23:35 Calculated Osmolality 295 mOsm/kg (285-295) 03/14/22 23:35 Lactic Acid 1.5 mmol/L (0.5-2.2) 03/14/22 23:42 Calcium 8.5 mg/dL (8.5-10.5) 03/14/22 23:35 Total Bilirubin 0.4 mg/dL (0.15-1.2) 03/14/22 23:35 AST 16 U/L (0-32) 03/14/22 23:35 ALT 9 U/L (0-33) 03/14/22 23:35 Alkaline Phosphatase 85 U/L (35-105) 03/14/22 23:35 Troponin T Baseline 27 ng/L (0-10) H 03/14/22 23:35 NT-Pro-B Natriuret Pep 4544 pg/mL (0-125) H 03/14/22 23:35 Total Protein 6.7 g/dL (6.6-8.7) 03/14/22 23:35 Albumin 3.4 g/dL (3.5-5.2) L 03/14/22 23:35 Globulin 3.3 g/dL (1.3-4.6) 03/14/22 23:35 Influenza Type A Ag negative (Negative) 03/14/22 23:38 Influenza Type B Ag negative (Negative) 03/14/22 23:38 SARS-CoV-2 Ag (Rapid) negative (Negative) 03/14/22 23:38 EKG Data EKG 1: I personally reviewed and interpreted this EKG as follows: EKG Interpretation Date: 03/14/22 EKG interpretation time: 23:36 Interpretation: afib with rvr hr [address] or t wave abnormalities qrs 95 qtc 377 Discharge Plan Discharge Condition: Stable Prescriptions: No Action buspirone 15 mg tablet 15 mg PO BID PRN (Reason: Anxiety) lisinopril 40 mg tablet 40 mg PO DAILY lovastatin 20 mg tablet 20 mg PO DAILY aspirin [Adult Aspirin Regimen] 81 mg tablet,delayed release (DR/EC) 81 mg PO DAILY clopidogrel 75 mg tablet 75 mg PO DAILY allopurinol 100 mg tablet 100 mg PO BID hydrocodone-acetaminophen 5-325 mg tablet 1 tab PO BID mirtazapine 15 mg tablet 15 mg PO DAILY metformin 500 mg tablet 500 mg PO DAILY trazodone 50 mg tablet 50 mg PO BEDTIME metoprolol succinate 50 mg tablet extended release 24 hr 50 mg PO BID gabapentin 400 mg capsule 400 mg PO TID alprazolam 0.5 mg tablet 0.5 mg PO DAILY PRN (Reason: Anxiety) albuterol sulfate 90 mcg/actuation HFA aerosol inhaler 2 puff INHALATION Q6H PRN (Reason: Shortness Of Breath) duloxetine 60 mg capsule,delayed release(DR/EC) 60 mg PO BID ibuprofen 800 mg tablet 800 mg PO TID PRN (Reason: Pain) cholecalciferol (vitamin D3) 1,250 mcg (50,000 unit) capsule 50,000 unit PO Q7D prednisone 20 mg tablet 20 mg PO BID PRN Referrals: Scar Gomez [Primary Care Provider] - Coding Level of Care Code ED Storage Battery Inspector for Chg Fwd Exam Comprehensive
--- NOTE | 2022-03-14 23:36 | ECG_ITS ---
[facility] Test Date: 2022-03-14 Pat Name: Lyndsey Franco Department: Room: Gender: Female Manager Product Design: : 1950 Requested By: Roseanne Awad Order Number: [id number] Angeli MD: Delmis Camilo M.D. Measurements Intervals [place] Rate: 150 P: 0 [place]: 0 QRS: 11 QRSD: 95 T: 86 QT: 292 QTc: 461 Interpretive Statements ATRIAL FIBRILLATION WITH RAPID VENTRICULAR RESPONSE MODERATE ST DEPRESSION [0.05+ mV ST DEPRESSION] CRITICAL TEST RESULT Compared to ECG 12/04/2020 16:38:44 ST (T wave) deviation now present T-wave abnormality no longer present Electronically Signed On 03-15-2022 0:01:23 PAPER BAG MACHINE OPERATOR by Delmis Camilo M.D. [email or web address]/[id number]
[2022-03-14 23:44] VITALS: BP 164/92; PULSE 160; RESP 32; O2SAT 94
[2022-03-14 23:46] VITALS: PULSE 148; RESP 20; O2SAT 93
[2022-03-14] MEDS: albuterol 2.5 mg/3 mL Neb INHALATION (23:47)
[2022-03-14] MEDS: sodium chloride 0.9% 1,000 ML 999 ML IV (23:47)
[2022-03-14] MEDS: dilTIAZem 5 mg/mL SDV 5 mL 20 MG IVP (23:48)
[2022-03-14 23:50] VITALS: PULSE 125
[2022-03-14 23:50] LABS: Basophils % 0.2 %; Eosinophils # 0.1 10^3/uL (0.0-0.8); Eosinophils % 0.6 %; Hematocrit 37.5 % (37.0-47.0); Hemoglobin 11.7 g/dL (11.5-15.3); Lymphocytes # 0.9 10^3/uL (0.8-4.8); Lymphocytes % 10.8 %; Mean Corpuscular HGB Conc 31.2 g/dL (30.0-36.0); Mean Corpuscular Volume 96.2 fl (81-99); Mean Platelet Volume 10.3 fL (7.4-10.4); Monocytes # 0.6 10^3/uL (0.2-0.9); Monocytes % 7.9 %; Neutrophils % 80.1 %; Nucleated Red Blood Cells % 0 %; Platelet Count 267 10^3/cmm (130-400); Red Cell Distribution Width 16.4 % (12.1-15.1); White Blood Count 8.1 10^3/uL (4.0-10.0)
[2022-03-15] VITALS (11 sets, daily range): BP systolic 117–158; BP diastolic 65–91; PULSE 69–100; RESP 16–22; TEMP 35.8–38.1; O2SAT 90–97
[2022-03-15 00:09] LABS: Troponin(5th) Baseline 27 ng/L (0-10)
[2022-03-15 00:09] LABS: Lactic Sepsis W/Reflex 1.5 mmol/L (0.5-2.2)
--- NOTE | 2022-03-15 00:10 | PC.NURSE ---
blood cultures x2 drawn prior to ABX start
[2022-03-15] MEDS: acetaminophen 500 mg Tablet 1000 MG PO (00:11)
[2022-03-15] MEDS: cefTRIAXone 1,000 MG in sodium chloride 0.9% (plus) 50 ML 100 MG IV ×2 (00:13→08:19)
[2022-03-15 00:14] LABS: Influenza A by IFA negative (Negative); Influenza B by IFA negative (Negative)
[2022-03-15 00:15] LABS: Alanine Aminotransferase 9 U/L (0-33); Albumin Level 3.4 g/dL (3.5-5.2); Alkaline Phosphatase 85 U/L (35-105); Aspartate Amino Transferase 16 U/L (0-32); Blood Urea Nitrogen 23 mg/dL (8-23); Calcium 8.5 mg/dL (8.5-10.5); Carbon Dioxide 22 mmol/L (22-29); Chloride 107 mmol/L (98-107); Globulin 3.3 g/dL (1.3-4.6); Glucose 155 mg/dL (65-115); Osmolality Calculated 295 mOsm/kg (285-295); Sodium 139 mmol/L (136-145); Total Bilirubin 0.4 mg/dL (0.15-1.2); Total Protein 6.7 g/dL (6.6-8.7)
[2022-03-15] MEDS: azithromycin 500 MG in sodium chloride 0.9% 250 ML 250 MG IV (00:15)
[2022-03-15 00:17] LABS: NT Pro B Type Natriuretic Pept 4544 pg/mL (0-125)
[2022-03-15 00:18] LABS: SARS Covid-2 Antigen negative (Negative)
--- NOTE | 2022-03-15 00:49 | P.HP_ITS ---
Providers/Chief Complaint Primary Care Provider: Scar Gomez Chief Complaint: Resp Distress History of Present Illness Noni Franco is a 71 year old female with history of pericardial cyst, COVID-pneumonia in 2020 presented today with chief complaint of cough, fever and shortness of breath. During COVID-19 pneumonia she was requiring 4 to 5 L of oxygen which was weaned off to room air, in the ER she has been diagnosed with CHF exacerbation versus pneumonia currently she is requiring 4 L of oxygen. Her EKG is consistent with A. fib RVR, she does carry history of A. fib with right bundle branch block. Patient has presented to the hospital with chief complaint of worsening of shortness of breath. Patient is stating that she has been experiencing runny nose runny eyes for last few days, now her voice is changed, she has not noticed any nausea, vomiting but she has been experiencing chills, subjective fevers, lethargy and fatigue, she also noticed sharp left-sided chest pain which she is able to pinpoint. She does not use any oxygen at home. In the ER she has received antibiotics, Cardizem for A. fib RVR along Lasix and albuterol that improved her wheezing Review of Systems Const: Reports: fever(s), chills and body aches Eyes: Denies: change in vision ENMT: Denies: throat pain Card: Reports: dyspnea on exertion and orthopnea Resp: Reports: dyspnea GI: Denies: abdominal pain : Denies: flank pain Musc: Denies: neck pain Skin/Breast: Denies: rash or skin pain Neuro: Denies: headache(s) Psych: Reports: anxiety Billy/Lymph: Denies: easy bruising All/Imm: Denies: urticaria Medications/Allergies Home Medications Medication Instructions Recorded Confirmed Last Taken Type aspirin 81 mg tablet,delayed 81 mg PO DAILY 04/23/20 02/18/21 11/27/20 History release (Adult Aspirin Regimen) buspirone 15 mg tablet 15 mg PO BID PRN Anxiety 04/23/20 02/18/21 Unknown History clopidogrel 75 mg tablet 75 mg PO DAILY 04/23/20 02/18/21 11/27/20 History lisinopril 40 mg tablet 40 mg PO DAILY 04/23/20 02/18/21 11/27/20 History lovastatin 20 mg tablet 20 mg PO DAILY 0102/18/21 11/27/20 History allopurinol 100 mg tablet 100 mg PO BID 05/28/20 02/18/21 11/27/20 History albuterol sulfate 90 mcg/actuation 2 puff inhalation Q6H PRN 11/28/20 02/18/21 Unknown History aerosol inhaler Shortness Of Breath alprazolam 0.5 mg tablet 0.5 mg PO DAILY PRN Anxiety 11/28/20 02/18/21 Unknown History cholecalciferol (vitamin D3) 1,250 50,000 unit PO Q7D 11/28/20 11/28/20 Unknown History mcg (50,000 unit) capsule duloxetine 60 mg capsule,delayed 60 mg PO BID 11/28/20 02/18/21 11/27/20 History release gabapentin 400 mg capsule 400 mg PO TID 11/28/20 02/18/21 11/27/20 History ibuprofen 800 mg tablet 800 mg PO TID PRN Pain 11/28/20 02/18/21 Unknown History metformin 500 mg tablet 500 mg PO DAILY 11/28/20 02/18/21 11/27/20 History metoprolol succinate 50 mg 50 mg PO BID 11/28/20 02/18/21 11/27/20 History tablet,extended release 24 hr trazodone 50 mg tablet 50 mg PO BEDTIME 11/28/20 02/18/21 11/27/20 History hydrocodone 5 mg-acetaminophen 325 1 tab PO BID 02/18/21 02/18/21 Unknown History mg tablet mirtazapine 15 mg tablet 15 mg PO DAILY 02/18/21 02/18/21 Unknown History prednisone 20 mg tablet 20 mg PO BID PRN 02/18/21 02/18/21 Unknown History Allergies Allergy/AdvReac Type Severity Reaction Status Date / Time shrimp Allergy ALGY-Swell Verified 02/18/21 13:57 Lip/Tongue/Throat PFSH Acute PFSH: Medical History ASHD (arteriosclerotic heart disease) CKD (chronic kidney disease) COPD (chronic obstructive pulmonary disease) ESR raised HLD (hyperlipidemia) HTN (hypertension) Non-insulin dependent diabetes mellitus Surgical History Hx of eye surgery Hx of gastric bypass Hx of heart artery stent Hx of tubal ligation Family History Mother CAD (coronary artery disease) Diabetes Father CAD (coronary artery disease) Diabetes Social History Smoking and tobacco status: never smoked Alcohol intake: never History of recent travel: No Vitals/I&O/Wt Last Vital Signs Temp 102.2 F H 03/14/22 23:27 Pulse 92 03/15/22 00:46 Resp 19 H 03/15/22 00:46 BP 133/89 03/15/22 00:46 Pulse Ox 94 03/15/22 00:46 O2 Del Method 03/15/22 00:46 O2 Flow Rate 4 03/15/22 00:46 03/14/22 03/14/22 03/15/22 14:59 22:59 06:59 Intake Total 1050 / 1050 Balance 1050 / 1050 Weight last 48 hrs Weight 86.183 kg Physical Exam Narrative: A. fib without RVR Hemodynamically stable Awake and alert Currently on 4 L nasal cannula Bilateral breath sounds, wheezing has improved Mild crackles with rhonchi Abdomen soft Lower extremity no edema Morbidly obese female Currently not in any active distress Pleasant and cooperative Variable S1-S2 Data 03/14/22 23:35 03/14/22 23:35 Micro: Microbiology 03/15/22 00:09 Blood Culture - Preliminary Blood SPECIMEN COLLECTED 03/14/22 23:42 Blood Culture - Preliminary Blood SPECIMEN COLLECTED A&P Assessment and plan (1) Acute respiratory failure with hypoxia: (2) CHF exacerbation: (3) Community acquired pneumonia: Plan Acute CHF exacerbation EF is unknown Will request echo I will start her on IV Lasix No active chest pain, currently hemodynamic stable Community-acquired pneumonia Acute hypoxia related to CHF exacerbation Currently on ceftriaxone azithromycin and IV Lasix Respiratory assess and treat DuoNeb every 4 as needed COVID PCR negative Patient suffered from viral symptoms as well currently experiencing laryngitis In case of recurrent high-grade febrile episodes she might need chest CT, will plan sputum culture blood cultures have been requested, no active signs of sepsis A. fib without RVR Patient is stating that she is on a blood thinner but she is not sure about the name I will continue her aspirin along Eliquis for now Please review her anticoagulating agent in the morning with the pharmacy Full code Cardiac diet DVT prophylaxis covered with Eliquis Attestations Medical Necessity Statement*: Anticipating more than 2 midnights for management of pneumonia, CHF exacerbation Time Spent in Patient Care: 40 Coding Level of Care Code Acute Quality Assurance Specialist for Paulette Cartagena Diagnoses Acute respiratory failure with hypoxia J96.01 CHF exacerbation I50.9 Community acquired pneumonia J18.9
[2022-03-15] MEDS: FUROsemide 10 mg/mL SDV 4mL 40 MG IVP (00:50)
--- NOTE | 2022-03-15 01:19 | USCV_ITS ---
Lyndsey Franco Age: 71 Gender: F : 1950 Exam Date: 03/15/2022 01:40 Ordering Phys: Lillie Hathaway MD Technologist: SANTINO Exam Location: [facility] [place] Indication: CHF BP: 133 / 89 HR: 85 Rhythm: Atrial fibrillation Technical Quality: Adequate MEASUREMENTS (Male / Female) Normal Values 2D ECHO LV Diastolic Diameter PLAX 4.0 cm 4.2 - 5.9 / 3.9 - 5.3 cm LV Systolic Diameter PLAX 2.8 cm IVS Diastolic Thickness 1.5 cm 0.6 - 1.0 / 0.6 - 0.9 cm IVS Systolic Thickness 1.6 cm LVPW Diastolic Thickness 1.5 cm 0.6 - 1.0 / 0.6 - 0.9 cm LVPW Systolic Thickness 1.7 cm LVOT Diameter 1.9 cm LV Ejection Fraction 2D Teich 56.0 % LV Ejection Fraction MOD 2C 57.7 % LV Ejection Fraction 2C AL 57.4 % LA Diameter 5.1 cm LA Width 5.7 cm LA Height 9.5 cm RA Width 4.5 cm RA Height 6.8 cm Aorta at Sinotubular Diameter 3.3 cm IVC Diameter 2.8 cm M-MODE Aortic Annulus Diameter 3.9 cm LA Ao Ratio MM 1.2 MV E Point Septal Separation 0.6 cm DOPPLER AV Peak Velocity 127.0 cm/s LVOT Peak Velocity 104.0 cm/s AV Area Cont Eq vti 2.3 cm squared AV Area Cont Eq pk 2.4 cm squared MV Area PHT 4.4 cm squared MV E' Velocity 88.0 cm/s Mitral E to MV E' Ratio 23.1 Mitral E to LV E' Lateral Ratio 22.8 Mitral E to LV E' Septal Ratio 23.7 TR Peak Velocity 323.0 cm/s TR Peak Gradient 41.7 mmHg TV Peak E Velocity 52.0 cm/s Right Atrial Pressure 10.0 mmHg Pulmonary Artery Systolic Pressu 51.7 mmHg PV Peak Velocity 115.0 cm/s RV Acceleration Time 0.1 s RV Ejection Time 0.3 s RV AcT/ET 0.2 FINDINGS Left Ventricle Normal left ventricular size, systolic function and wall thickness, with no regional wall motion abnormalities. Left ventricular ejection fraction is estimated at 60-65 %. Rhythm precludes evaluation of diastolic function. Right Ventricle Normal right ventricular size and systolic function. Right ventricular systolic pressure 57 mmHg. Right Atrium Normal right atrial size. Left Atrium Severely increased left atrial size. Mitral Valve Moderate mitral annular calcification. Moderately thickened mitral valve. No mitral valve stenosis. No mitral valve regurgitation. Aortic Valve Mildly thickened trileaflet aortic valve. No aortic valve stenosis. No aortic valve regurgitation. Tricuspid Valve Structurally normal tricuspid valve. No tricuspid valve stenosis. Mild to moderate tricuspid valve regurgitation. Pulmonic Valve Structurally normal pulmonic valve. No pulmonary valve stenosis. Trace pulmonary valve regurgitation. Pericardium No pericardial effusion. Aorta Normal size aortic root. Mildly dilated proximal ascending aorta measured anteroposteriorly at 42 mm. IVC Dilated IVC with no respiratory variation. CONCLUSIONS 1. Normal left ventricular size, systolic function and wall thickness, with no regional wall motion abnormalities. Left ventricular ejection fraction is estimated at 60-65 %. 2. Severe pulmonary hypertension with pulmonary pressure estimated at 57 mmHg. 3. Mild to moderate tricuspid valve regurgitation. 4. Mildly dilated proximal ascending aorta measured anteroposteriorly at 42 mm. 5. When compared to previous study dated 12/01/2020, left ankle systolic function has improved. Hanna Valdez MD (Electronically Signed) Final Date: 15 March 2022 16:44 S
--- NOTE | 2022-03-15 01:53 | ECG_ITS ---
[facility] Test Date: 2022-03-15 Pat Name: Lyndsey Franco Department: Room: 276 Gender: Female Shoe Patternmaker: : 1950 Requested By: Roseanne Awad Order Number: [id number] Angeli MD: Hanna Valdez M.D. Measurements Intervals [place] Rate: 84 P: 0 [place]: 0 QRS: 5 QRSD: 106 T: 87 QT: 363 QTc: 430 Interpretive Statements ATRIAL FIBRILLATION INCOMPLETE RIGHT BUNDLE BRANCH BLOCK [90+ ms QRS DURATION, TERMINAL R IN V1/V2, 40+ ms S IN I/aVL/V4/V5/V6] NONSPECIFIC ST & T-WAVE ABNORMALITY ABNORMAL RHYTHM ECG Compared to ECG 03/14/2022 23:36:42 Incomplete right bundle-branch block now present T-wave abnormality now present ST (T wave) deviation no longer present Electronically Signed On 03-15-2022 18:11:57 LOCAL COMPANY INTERMODAL TRUCK DRIVER by Hanna Valdez M.D. [id number]
[2022-03-15 03:40] LABS: Blood Urea Nitrogen 23 mg/dL (8-23); Carbon Dioxide 19 mmol/L (22-29); Chloride 109 mmol/L (98-107); Glucose 194 mg/dL (65-115); Magnesium 1.5 mg/dL (1.7-2.3); Osmolality Calculated 297 mOsm/kg (285-295); Sodium 139 mmol/L (136-145); Troponin 5 2HR 24.66 ng/L (0-10)
[2022-03-15 03:45] LABS: Troponin 5 2HR Delta -2.34 ABS# (0-10)
--- NOTE | 2022-03-15 05:30 | ECG_ITS ---
[facility] Test Date: 2022-03-15 Pat Name: Lyndsey Franco Department: Room: 276 Gender: Female Help Desk Assistant: : 1950 Requested By: Roseanne Awad Order Number: [id number] Angeli MD: Hanna Valdez M.D. Measurements Intervals [place] Rate: 76 P: 0 [place]: 0 QRS: 6 QRSD: 104 T: 78 QT: 423 QTc: 478 Interpretive Statements ATRIAL FIBRILLATION INCOMPLETE RIGHT BUNDLE BRANCH BLOCK [90+ ms QRS DURATION, TERMINAL R IN V1/V2, 40+ ms S IN I/aVL/V4/V5/V6] NONSPECIFIC ST & T-WAVE ABNORMALITY ABNORMAL RHYTHM ECG Compared to ECG 03/15/2022 01:53:20 No significant changes Electronically Signed On 03-15-2022 18:11:47 SUPERVISOR AGENCY APPOINTMENTS by Hanna Valdez M.D. [id number]
[2022-03-15 06:30] LABS: Glucose Point of Care 226 mg/dL (70-110)
[2022-03-15 06:32] LABS: Basophils % 0.1 %; Hematocrit 35.2 % (37.0-47.0); Hemoglobin 10.7 g/dL (11.5-15.3); Lymphocytes # 0.2 10^3/uL (0.8-4.8); Lymphocytes % 2.6 %; Mean Corpuscular HGB Conc 30.4 g/dL (30.0-36.0); Mean Corpuscular Hemoglobin 29.6 pg (28.0-34.0); Mean Corpuscular Volume 97.2 fl (81-99); Mean Platelet Volume 10.1 fL (7.4-10.4); Monocytes # 0.2 10^3/uL (0.2-0.9); Monocytes % 2.4 %; Neutrophils % 94.4 %; Nucleated Red Blood Cells % 0 %; Platelet Count 220 10^3/cmm (130-400); Red Blood Count 3.62 10^6/uL (4.1-5.3); Red Cell Distribution Width 16.4 % (12.1-15.1)
[2022-03-15 06:47] LABS: D Dimer 1.92 ug/mIFEU (0-0.59)
[2022-03-15 06:53] LABS: Troponin 5 6HR 23.19 ng/L (0-10)
[2022-03-15 07:05] LABS: Troponin 5 6HR Delta -3.81 ng/L (0-12)
[2022-03-15] MEDS: ipratropium-albuterol 3 mL Neb INHALATION ×2 (08:15→22:26)
[2022-03-15] MEDS: duloxetine 60 mg Capsule PO ×2 (08:17→17:34)
[2022-03-15] MEDS: metoprolol succinate ER (24 HR) 50 mg Tablet PO ×2 (08:17→17:33)
[2022-03-15] MEDS: lisinopril 20 mg Tablet 40 MG PO (08:17)
[2022-03-15] MEDS: sennosides-docusate Tablet 1 TAB PO (08:17)
[2022-03-15] MEDS: aspirin 81 mg EC Tablet PO (08:17)
[2022-03-15] MEDS: HYDROcodone-acetaminophen 5-325 mg Tablet 1 TAB PO ×2 (08:18→17:33)
[2022-03-15] MEDS: FUROsemide 10 mg/mL SDV 10mL 60 MG IVP (08:19)
[2022-03-15] MEDS: apixaban 5 mg Tablet PO ×2 (08:26→20:48)
[2022-03-15] MEDS: insulin lispro 100 unit/1 mL SUBCUT ×2 (08:37→13:23)
[2022-03-15] MEDS: azithromycin 250 mg Tablet 500 MG PO (09:31)
[2022-03-15 10:38] LABS: Procalcitonin 0.36 ng/mL (0-0.5); Thyroid Stimulating Hormone 0.56 uIU/mL (0.27-4.20)
[2022-03-15] MEDS: levalbuterol 0.63 mg/3 mL Neb INHALATION (14:16)
[2022-03-15] MEDS: ipratropium 0.5 mg/2.5 mL Neb INHALATION ×3 (14:16→22:27)
[2022-03-15 14:32] LABS: Iron 11 ug/dL (37-145); Percent Saturation 3.7 % (20-50); Total Iron Binding Capacity 290 mcg/dl; Unsaturated Iron Binding 279 ug/dL (112-347)
--- NOTE | 2022-03-15 14:42 | PC.PHAR ---
Addendum entered by Angelina Franklin 03/15/22 14:46: pts cell phone number [phone] Original Note: pt states she takes care of her own medications-pt states she takes clopidogrel 75mg every other day rx last filled 12/10/21 90d/s 75mg daily-rx filled for metformin 500mg daily pt states only takes one tab every 7 days states this medication isnt good for your body so she just takes once a week-notes are made in the pharmacy comments
--- NOTE | 2022-03-15 14:44 | P.MISC_ITS ---
Miscellaneous Note Purpose of Documentation: Cross coverage note. Note: Admitted overnight. H&P and labs appreciated. Examination laying comfortably in bed with head of the bed elevated to 10 degrees on 3 L oxygen supplementation saturating 97%. States feeling a lot b gabrielle. Denies any nausea, vomiting, headache. Plan: Continue with IV ceftriaxone. Start on budesonide twice daily, Xopenex and ipratropium every 6 hours. Hold off on Solu-Medrol for now. Last echocardiogram shows EF of 35% with grade 1 diastolic dysfunction and mild pulmonary hypertension. Strict input output charting, daily weights. IV Lasix 60 mg daily. Plan for Lexiscan during this admission once patient is clinically better. Flu swab, COVID-19 rapid antigen negative. Check urine Legionella, bacterial antigen, sputum culture. Check procalcitonin, MRSA swab. Continue with IV ceftriaxone. Start on oral azithromycin. Restart other chronic medications including trazodone 50 mg daily, gabapentin 300 mg 3 times daily. Check A1c, lipid panel.
[2022-03-15 14:54] LABS: Vitamin B12 215 pg/mL (232-1245)
[2022-03-15 17:26] LABS: Folate Level 9.3 ng/mL (4.8-37.3)
[2022-03-15] MEDS: gabapentin 300 mg Capsule PO ×2 (17:33→20:47)
[2022-03-15] MEDS: ferrous gluconate 324 mg Tablet PO (17:34)
[2022-03-15] MEDS: cyanocobalamin 1,000 mcg/mL SDV 1000 MCG IM (17:54)
[2022-03-15] MEDS: budesonide 0.5 mg/2 mL Neb INHALATION (22:26)
[2022-03-15 22:27] LABS: Add Urine Microscopic? YES; Bilirubin Urine Neg (Negative); Blood Urine Neg (Negative); Glucose Urine UA Norm (Normal); Ketones Urine Negative (Negative); Leukocyte Esterase Urine Negative (Negative); Nitrate Urine Negative (Negative); Protein Urine 1+ (Negative); RBC Urine 0-4 /hpf (0-2); Specific Gravity, Urine 1.015 (1.005-1.030); Squamous Epithelial Cell Urine 0-4 /hpf (0-5); Transitional Epi Cells Urine 0-4 /hpf; Urine Appearance Clear (CLEAR); Urine Color Yellow (Yellow); Urobilinogen Urine Norm (Negative); pH Urine 5 (5-7)
[2022-03-15 22:28] LABS: Add Urine Culture? No; Amorphous Sediment Urine 1+ /hpf; Hyaline Casts Urine 0-4 /lpf
[2022-03-16] VITALS (13 sets, daily range): BP systolic 120–144; BP diastolic 73–93; PULSE 71–101; RESP 16–18; TEMP 36.6–36.7; O2SAT 86–98
[2022-03-16] MEDS: levalbuterol 0.63 mg/3 mL Neb INHALATION ×3 (01:46→14:34)
[2022-03-16] MEDS: allopurinol 100 mg Tablet PO (05:47)
[2022-03-16 06:01] LABS: Basophils % 0.2 %; Hemoglobin 10.6 g/dL (11.5-15.3); Lymphocytes # 0.5 10^3/uL (0.8-4.8); Lymphocytes % 4.9 %; Mean Corpuscular HGB Conc 31.2 g/dL (30.0-36.0); Mean Corpuscular Hemoglobin 29.6 pg (28.0-34.0); Mean Platelet Volume 9.7 fL (7.4-10.4); Monocytes # 0.6 10^3/uL (0.2-0.9); Monocytes % 5.6 %; Neutrophils # 9.17 10^3/uL (1.8-7.7); Nucleated Red Blood Cells % 0 %; Platelet Count 215 10^3/cmm (130-400); Red Blood Count 3.58 10^6/uL (4.1-5.3); Red Cell Distribution Width 16.1 % (12.1-15.1); White Blood Count 10.3 10^3/uL (4.0-10.0)
[2022-03-16 06:11] LABS: Estmated Average Glucose 131; Hemoglobin A1C 6.2 % (4.0-6.0)
[2022-03-16 06:18] LABS: Alanine Aminotransferase 10 U/L (0-33); Albumin Level 3.1 g/dL (3.5-5.2); Alkaline Phosphatase 71 U/L (35-105); Anion Gap 11.1 (5-19); Aspartate Amino Transferase 16 U/L (0-32); Blood Urea Nitrogen 36 mg/dL (8-23); Calcium 8.5 mg/dL (8.5-10.5); Carbon Dioxide 25 mmol/L (22-29); Chloride 108 mmol/L (98-107); Chol HDL Ratio 2.38 mg/dL (0.0-4.40); Cholesterol 126 mg/dL (0-200); Globulin 3.2 g/dL (1.3-4.6); Glucose 102 mg/dL (65-115); HDL Cholesterol 53 mg/dL (60-100); LDL Cholesterol Calculated 64 mg/dL (50-129); Osmolality Calculated 299 mOsm/kg (285-295); Potassium 4.1 mmol/L (3.5-5.1); Sodium 140 mmol/L (136-145); Total Bilirubin 0.2 mg/dL (0.15-1.2); Total Protein 6.3 g/dL (6.6-8.7); Triglycerides 43 mg/dL (0-150); VLDL Cholestrol Calculation 9 mg/dL (0-30)
[2022-03-16 06:33] LABS: Glucose Point of Care 321 mg/dL (70-110)
[2022-03-16 06:33] LABS: Glucose Point of Care 132 mg/dL (70-110)
[2022-03-16 06:34] LABS: Glucose Point of Care 96 mg/dL (70-110)
[2022-03-16 06:34] LABS: Glucose Point of Care 139 mg/dL (70-110)
[2022-03-16] MEDS: ipratropium 0.5 mg/2.5 mL Neb INHALATION ×2 (07:45→14:34)
[2022-03-16] MEDS: cefTRIAXone 1,000 MG in sodium chloride 0.9% (plus) 50 ML 100 MG IV (09:54)
[2022-03-16] MEDS: cyanocobalamin 1,000 mcg Tablet 500 MCG PO (09:55)
[2022-03-16] MEDS: azithromycin 250 mg Tablet 500 MG PO (09:55)
[2022-03-16] MEDS: metoprolol succinate ER (24 HR) 50 mg Tablet PO ×2 (09:56→17:05)
[2022-03-16] MEDS: HYDROcodone-acetaminophen 5-325 mg Tablet 1 TAB PO ×2 (09:56→17:05)
[2022-03-16] MEDS: duloxetine 60 mg Capsule PO ×2 (09:56→17:05)
[2022-03-16] MEDS: gabapentin 300 mg Capsule PO ×2 (09:56→14:54)
[2022-03-16] MEDS: lisinopril 20 mg Tablet 40 MG PO (09:57)
[2022-03-16] MEDS: aspirin 81 mg EC Tablet PO (09:57)
[2022-03-16] MEDS: pantoprazole DR 40 mg Tablet PO (09:57)
[2022-03-16] MEDS: FUROsemide 10 mg/mL SDV 10mL 60 MG IVP (09:57)
[2022-03-16] MEDS: sennosides-docusate Tablet 1 TAB PO (09:57)
[2022-03-16] MEDS: ferrous gluconate 324 mg Tablet PO ×2 (09:57→17:05)
[2022-03-16] MEDS: apixaban 5 mg Tablet PO (10:11)
[2022-03-16 11:29] LABS: Glucose Point of Care 147 mg/dL (70-110)
[2022-03-16] MEDS: insulin lispro 100 unit/1 mL SUBCUT (13:14)
--- NOTE | 2022-03-16 14:18 | P.DS_ITS ---
Discharge Providers Date of Admission: 03/15/22 00:55 Date of Discharge: March 16, 2022 Attending Provider at Admission: Lillie Hathaway MD Attending Provider at Discharge: Miky Babb MD Primary Care Provider: Scar Gomez Diagnoses at Discharge Discharge Diagnosis (1) Acute respiratory failure with hypoxia: Status: Acute (2) CHF exacerbation: Status: Acute (3) Community acquired pneumonia: Status: Acute Reason for Visit Reason for Visit: Resp Distress Brief History: History as per HPI: Lyndsey Franco is a 71 year old female with history of pericardial cyst, COVID- pneumonia in 2020 presented today with chief complaint of cough, fever and shortness of breath.? During COVID-19 pneumonia she was requiring 4 to 5 L of oxygen which was weaned off to room air, in the ER she has been diagnosed with CHF exacerbation versus pneumonia currently she is requiring 4 L of oxygen.? Her EKG is consistent with A. fib RVR, she does carry history of A. fib with right bundle branch block. Patient has presented to the hospital with chief complaint of worsening of shortness of breath.? Patient is stating that she has been experiencing runny nose runny eyes for last few days, now her voice is changed, she has not noticed any nausea, vomiting but she has been experiencing chills, subjective fevers, lethargy and fatigue, she also noticed sharp left-sided chest pain which she is able to pinpoint.? She does not use any oxygen at home. In the ER she has received antibiotics, Cardizem for A. fib RVR along Lasix and albuterol that improved her wheezing Hospital Course Hospital Course Patient was admitted to hospital further evaluation and management of hypoxia secondary to COPD exacerbation, atrial fibrillation with rapid ventricular response and slight concern for congestive heart failure. She was started on broad-spectrum antibiotics and IV diuretics. Echocardiogram was done which showed improvement in EF which is now normal along with severe pulmonary hypertension with PASP of 57 mmHg. She was started on nebulization treatment after which she responded well and has been on room air. Patient states she is feeling better as well. During hospitalization various culture results remain negative. She has been discharged in hemodynamically stable condition after home oxygen evaluation on inhalation treatment, daily diuretics and oral antibiotics for 5 more days. Physical Exam Narrative: A. fib without RVR Hemodynamically stable Awake and alert Currently on 4 L nasal cannula Bilateral breath sounds, wheezing has improved Mild crackles with rhonchi Abdomen soft Lower extremity no edema Morbidly obese female Currently not in any active distress Pleasant and cooperative Variable S1-S2 Discharge Data Studies Completed and Pending Completed Studies During Hospitalization Category Date Time Status XR chest 1V portable [id number] Stat Exams 03/14/22 23:30 Completed CV. echo complete* [id number] Routine Ultrasound 03/15/22 01:19 Completed Pending at discharge Category Date Time Status Blood Culture Stat Lab 03/14/22 23:42 Results Sputum Culture and Gram Stain Routine Lab 03/15/22 10:30 Results Radiology Impressions Chest X-Ray 03/14/22 23:30 IMPRESSION: 1. Cardiomegaly. 2. Mild pulmonary vascular congestion. 3. Patchy bilateral ground-glass airspace opacities reflecting alveolar edema and/or pneumonic infiltrates. Echocardiogram: ?CONCLUSIONS ?1. Normal left ventricular size, systolic function and wall?thickness, with no regional wall motion abnormalities. Left ?ventricular ejection fraction is estimated at 60-65 %. ?2. Severe pulmonary hypertension with pulmonary pressure?estimated at 57 mmHg.? ?3. Mild to moderate tricuspid valve regurgitation. ?4. Mildly dilated proximal ascending aorta measured?anteroposteriorly at 42 mm. ?5. When compared to previous study dated 12/01/2020, left ankle?systolic function has improved. ?Hanna Valdez MD ?(Electronically Signed) ?Final Date:? ? ? 15 March 2022 ? 16:44 Microbiology 03/15/22 10:30 Sputum - Expectorated Sputum Gram Stain - Final 03/15/22 10:30 Sputum - Expectorated Sputum Sputum Culture - Preliminary 03/15/22 20:53 Urine Kidney Bacterial Antigens - Final 03/15/22 00:09 Blood Blood Culture - Preliminary NEGATIVE TO DATE 03/14/22 23:42 Blood Blood Culture - Preliminary NEGATIVE TO DATE 03/15/22 20:53 Urine,Voided Legionella Urinary Antigen - Final 03/15/22 03:35 Nose MRSA Culture - Final Laboratory Results WBC 10.3 10^3/uL (4.0-10.0) H 03/16/22 05:37 RBC 3.58 10^6/uL (4.1-5.3) L 03/16/22 05:37 Hgb 10.6 g/dL (11.5-15.3) L 03/16/22 05:37 Hct 34.0 % (37.0-47.0) L 03/16/22 05:37 MCV 95.0 fl (81-99) 03/16/22 05:37 MCH 29.6 pg (28.0-34.0) 03/16/22 05:37 MCHC 31.2 g/dL (30.0-36.0) 03/16/22 05:37 RDW 16.1 % (12.1-15.1) H 03/16/22 05:37 Plt Count 215 10^3/cmm (130-400) 03/16/22 05:37 MPV 9.7 fL (7.4-10.4) 03/16/22 05:37 Neut % (Auto) 89.0 % 03/16/22 05:37 Lymph % (Auto) 4.9 % 03/16/22 05:37 Humphreys % (Auto) 5.6 % 03/16/22 05:37 Eos % (Auto) 0.0 % 03/16/22 05:37 Baso % (Auto) 0.2 % 03/16/22 05:37 Neut # (Auto) 9.17 10^3/uL (1.8-7.7) H 03/16/22 05:37 Lymph # (Auto) 0.5 10^3/uL (0.8-4.8) L 03/16/22 05:37 Humphreys # (Auto) 0.6 10^3/uL (0.2-0.9) 03/16/22 05:37 Eos # (Auto) 0.0 10^3/uL (0.0-0.8) 03/16/22 05:37 Baso # (Auto) 0.0 10^3/uL (0.0-0.1) 03/16/22 05:37 Nucleated RBC % (auto) 0 % 03/16/22 05:37 Nucleated RBCs # 0.0 /100WBC 03/16/22 05:37 D-Dimer 1.92 ug/mIFEU (0-0.59) H 03/15/22 05:55 Sodium 140 mmol/L (136-145) 03/16/22 05:37 Potassium 4.1 mmol/L (3.5-5.1) 03/16/22 05:37 Chloride 108 mmol/L (98-107) H 03/16/22 05:37 Carbon Dioxide 25 mmol/L (22-29) 03/16/22 05:37 Anion Gap 11.1 (5-19) 03/16/22 05:37 BUN 36 mg/dL (8-23) H 03/16/22 05:37 Creatinine 1.1 mg/dL (0.5-0.9) H 03/16/22 05:37 GFR Calculation Not Reportable 03/16/22 05:37 Glucose 102 mg/dL (65-115) 03/16/22 05:37 POC Glucose 147 mg/dL (70-110) H 03/16/22 11:08 Estimat Average Glucose 131 03/16/22 05:37 Hemoglobin A1c 6.2 % (4.0-6.0) H 03/16/22 05:37 Calculated Osmolality 299 mOsm/kg (285-295) H 03/16/22 05:37 Lactic Acid 1.5 mmol/L (0.5-2.2) 03/14/22 23:42 Calcium 8.5 mg/dL (8.5-10.5) 03/16/22 05:37 Magnesium 1.5 mg/dL (1.7-2.3) L 03/15/22 02:30 Iron 11 ug/dL (37-145) L 03/15/22 05:55 TIBC 290 mcg/dl 03/15/22 05:55 % Saturation 3.7 % (20-50) L 03/15/22 05:55 Unsat Iron Binding 279 ug/dL (112-347) 03/15/22 05:55 Total Bilirubin 0.2 mg/dL (0.15-1.2) 03/16/22 05:37 AST 16 U/L (0-32) 03/16/22 05:37 ALT 10 U/L (0-33) 03/16/22 05:37 Alkaline Phosphatase 71 U/L (35-105) 03/16/22 05:37 Troponin T Baseline 27 ng/L (0-10) H 03/14/22 23:35 Troponin T 120 Minute 24.66 ng/L (0-10) H 03/15/22 02:30 Delta Troponin T -2.34 ABS# (0-10) L 03/15/22 02:30 Troponin T Hi Sens 6Hr 23.19 ng/L (0-10) H 03/15/22 05:55 Troponin T Hi Sens 6Hr Delta -3.81 ng/L (0-12) L 03/15/22 05:55 C-Reactive Protein 58.0 mg/L (0.0-4.9) H 03/16/22 05:37 NT-Pro-B Natriuret Pep 4544 pg/mL (0-125) H 03/14/22 23:35 Total Protein 6.3 g/dL (6.6-8.7) L 03/16/22 05:37 Albumin 3.1 g/dL (3.5-5.2) L 03/16/22 05:37 Globulin 3.2 g/dL (1.3-4.6) 03/16/22 05:37 Triglycerides 43 mg/dL (0-150) 03/16/22 05:37 Cholesterol 126 mg/dL (0-200) 03/16/22 05:37 LDL Cholesterol, Calc 64 mg/dL (50-129) 03/16/22 05:37 Total VLDL Cholesterol 9 mg/dL (0-30) 03/16/22 05:37 HDL Cholesterol 53 mg/dL (60-100) L 03/16/22 05:37 Cholesterol/HDL Ratio 2.38 mg/dL (0.0-4.40) 03/16/22 05:37 Vitamin B12 215 pg/mL (232-1245) L 03/15/22 05:55 Folate 9.3 ng/mL (4.8-37.3) 03/15/22 11:43 Procalcitonin 0.36 ng/mL (0-0.5) 03/15/22 05:55 TSH 0.56 uIU/mL (0.27-4.20) 03/15/22 05:55 Urine Color Yellow (Yellow) 03/15/22 20:53 Urine Appearance Clear (CLEAR) 03/15/22 20:53 Urine pH 5 (5-7) 03/15/22 20:53 Ur Specific Alpine 1.015 (1.005-1.030) 03/15/22 20:53 Urine Protein 1+ (Negative) H 03/15/22 20:53 Urine Glucose (UA) Norm (Normal) 03/15/22 20:53 Urine Ketones Negative (Negative) 03/15/22 20:53 Urine Blood Neg (Negative) 03/15/22 20:53 Urine Nitrate Negative (Negative) 03/15/22 20:53 Urine Bilirubin Neg (Negative) 03/15/22 20:53 Urine Urobilinogen Norm mg/dL (Negative) 03/15/22 20:53 Ur Leukocyte Esterase Negative (Negative) 03/15/22 20:53 Urine RBC 0-4 /hpf (0-2) H 03/15/22 20:53 Urine WBC None /hpf (0-5) 03/15/22 20:53 Ur Squamous Epith Cells 0-4 /hpf (0-5) H 03/15/22 20:53 Ur Transition Epith Cell 0-4 /hpf 03/15/22 20:53 Amorphous Sediment 1+ /hpf 03/15/22 20:53 Urine Bacteria None /hpf (NONE) 03/15/22 20:53 Hyaline Casts 0-4 /lpf H 03/15/22 20:53 Influenza Type A Ag negative (Negative) 03/14/22 23:38 Influenza Type B Ag negative (Negative) 03/14/22 23:38 SARS-CoV-2 Ag (Rapid) negative (Negative) 03/14/22 23:38 Vitals Last Vital Signs Temp 98.0 F 03/16/22 11:30 Pulse 74 03/16/22 11:30 Resp 18 03/16/22 11:30 BP 137/75 03/16/22 11:30 Pulse Ox 98 03/16/22 11:30 O2 Del Method 03/16/22 11:30 O2 Flow Rate 3 03/16/22 11:30 Discharge Plan Discharge Patient Disposition: Home Condition: Stable Prescriptions: New levofloxacin 500 mg tablet 500 mg PO Q24H 5 Days Qty: 5 0RF Eliquis 5 mg Tablet 5 mg PO BID@0900,2100 Qty: 60 0RF amoxicillin-pot clavulanate [Augmentin XR] 1,000-62.5 mg tablet extended release 12 hr 1 tab PO BID Qty: 10 0RF Continued buspirone 15 mg tablet 15 mg PO BID PRN (Reason: Anxiety) lisinopril 40 mg tablet 40 mg PO DAILY lovastatin 20 mg tablet 20 mg PO QPM aspirin [Adult Aspirin Regimen] 81 mg tablet,delayed release (DR/EC) 81 mg PO QAM allopurinol 100 mg tablet 100 mg PO QAM hydrocodone-acetaminophen 5-325 mg tablet 1 tab PO BID PRN (Reason: Pain) mirtazapine 15 mg tablet 15 mg PO BEDTIME PRN (Reason: Sleep) gabapentin 400 mg capsule 800 mg PO BEDTIME alprazolam 0.5 mg tablet 0.5 mg PO DAILY PRN (Reason: Anxiety) albuterol sulfate 90 mcg/actuation HFA aerosol inhaler 2 puff INHALATION Q6H PRN (Reason: Shortness Of Breath) duloxetine 60 mg capsule,delayed release(DR/EC) 60 mg PO BID ibuprofen 800 mg tablet 800 mg PO TID PRN (Reason: Pain) albuterol sulfate 2.5 mg /3 mL (0.083 %) Solution For Nebulization 2.5 mg INHALATION Q6H PRN (Reason: Shortness Of Breath) Protonix 40 mg Tablet,Delayed Release (Dr/Ec) 40 mg PO DAILY Aleve 220 mg Tablet 440 mg PO Q12H PRN (Reason: Pain) Vitamin D3 125 mcg (5,000 unit) Tablet 5,000 unit PO Q7D Changed metformin 500 mg tablet 500 mg PO DAILY Qty: 30 0RF metoprolol succinate 50 mg tablet extended release 24 hr 50 mg PO QAM Qty: 30 0RF Lasix 20 mg Tablet 40 mg PO DAILY Qty: 60 0RF Discontinued clopidogrel 75 mg tablet 75 mg PO EVERY OTHER DAY Discharge Orders: Discharge Order (Routine); Ordered 03/16/22 Ordered By: Miky Babb Referrals: Scar Gomez [Primary Care Provider] - 7-10 days Discharge Diet: Cardiac Discharge Activity: Resume usual activity and Increase activity as tolerated Patient Instructions: Opioid Safety Discharge Attestations Time Spent in Discharge Care*: greater than 30 min Specific Discharge Activities: educating patient, discussing with pcp/other providers, discussing with home health care case manager/social workers/dc planners, documenting/other paperwork and evaluating patient/reviewing data Status at Discharge: Cognitive status at discharge: cognitively intact , Behavioral status at discharge: cooperative , Functional status at discharge: other assisted ambulation , Overall status at discharge: patient is back to baseline Quality Metrics Clinical Quality Measures [ No reported AMI, CVA or VTE this stay] Coding Level of Care Code Acute [facility] note Diagnoses Acute respiratory failure with hypoxia J96.01 CHF exacerbation I50.9 Community acquired pneumonia J18.9
--- NOTE | 2022-03-16 14:27 | CTR_ITS ---
PROCEDURE INFORMATION: Exam: CT Head Without Contrast Exam date and time: 03/16/2022 3:41 PM Age: 71 years old Clinical indication: Injury or trauma; Fall; Blunt trauma (contusions or hematomas); Without loss of consciousness TECHNIQUE: Imaging protocol: Computed tomography of the head without contrast. Radiation optimization: All CT scans at this facility use at least one of these dose optimization techniques: automated exposure control; mA and/or kV adjustment per patient size (includes targeted exams where dose is matched to clinical indication); or iterative reconstruction. COMPARISON: CT head wo con* [id number] 12/04/2020 5:19 PM RADIATION DOSE METRICS: Total DLP (mGy-cm): 1786.12 FINDINGS: Brain: Moderate white matter disease and volume loss are identified. There is no acute infarct or edema. No hemorrhage. Cerebral ventricles: No ventriculomegaly. Paranasal sinuses: There is fluid in the ethmoid and sphenoid sinuses. Mastoid air cells: Visualized mastoid air cells are well aerated. Bones/joints: Unremarkable. No acute fracture. Soft tissues: Unremarkable. CT/CT head wo con* [id number] IMPRESSION: There are no acute concerning abnormalities.
--- NOTE | 2022-03-16 14:27 | CTR_ITS ---
PROCEDURE INFORMATION: Exam: CT Maxillofacial Without Contrast Exam date and time: 03/16/2022 3:41 PM Age: 71 years old Clinical indication: Injury or trauma; Fall; Blunt trauma (contusions or hematomas); Nose TECHNIQUE: Imaging protocol: Computed tomography of the face without contrast. Radiation optimization: All CT scans at this facility use at least one of these dose optimization techniques: automated exposure control; mA and/or kV adjustment per patient size (includes targeted exams where dose is matched to clinical indication); or iterative reconstruction. COMPARISON: CT head wo con* [id number] 12/04/2020 5:19 PM RADIATION DOSE METRICS: Total DLP (mGy-cm): 1786.12 FINDINGS: Orbital cavities: Orbits are normal. Globes are unremarkable. Bones/joints: There is a minimally displaced nasal fracture. The zygomatic arch, pterygoid plates and orbital kelly are intact. Paranasal sinuses: There is opacification of the ethmoid, sphenoid and maxillary sinuses. Soft tissues: Unremarkable. CT/CT facial bones wo con* [id number] IMPRESSION: There is a minimally displaced nasal fracture.
--- NOTE | 2022-03-16 14:30 | PC.NURSE ---
post fall vitals
--- NOTE | 2022-03-16 14:35 | PC.NURSE ---
Notified Dr. Babb of patient falling with respiratory. Verbal order to do a CT of head and face.
== END 2022-03-16 17:45 | disposition home or self-care (01) | DRG 190 ==
LOC: ER 23:39 → MEDSURG 03-15 00:56
PROVIDERS: Admitting Provider Internal Medicine; Emergency Provider Emergency Medicine; PCP Family Medicine; Visit Provider Student in an Organized Health Care Education/Training Program
DX: J44.1 Chronic obstructive pulmonary disease with (acute) exacerbation (principal); J18.9 Pneumonia, unspecified organism; J96.01 Acute respiratory failure with hypoxia; I13.0 Hypertensive heart and chronic kidney disease with heart failure and stage 1 through stage 4 chronic kidney disease, or unspecified chronic kidney disease; I50.22 Chronic systolic (congestive) heart failure; Z68.41 Body mass index [BMI] 40.0-44.9, adult; J44.0 Chronic obstructive pulmonary disease with (acute) lower respiratory infection; I48.91 Unspecified atrial fibrillation; N18.9 Chronic kidney disease, unspecified; E11.22 Type 2 diabetes mellitus with diabetic chronic kidney disease; Z86.16 Personal history of COVID-19; Z87.01 Personal history of pneumonia (recurrent); I25.10 Atherosclerotic heart disease of native coronary artery without angina pectoris; E78.5 Hyperlipidemia, unspecified; I27.20 Pulmonary hypertension, unspecified; S02.2XXA Fracture of nasal bones, initial encounter for closed fracture; W18.30XA Fall on same level, unspecified, initial encounter; Y92.239 Unspecified place in hospital as the place of occurrence of the external cause; Z79.82 Long term (current) use of aspirin; Z79.891 Long term (current) use of opiate analgesic; Z79.51 Long term (current) use of inhaled steroids; E66.01 Morbid (severe) obesity due to excess calories
CPT/HCPCS: 36415; 36416; 70450; 70486; 71045; 80048; 80053; 80061; 81001; 82607; 82746; 82962; 83036; 83540; 83550; 83605; 83735; 83880; 84145; 84443; 84484; 85025; 85378; 86140; 86403; 87040; 87070; 87205; 87426; 87449; 87641; 87804; 93005; 93306; 94640; 94664; 94760; 96365; 96372; 96375; 97161; 99285; J0456; J0696; J1815; J1940; J3420; J3490; J7030; J7050; J7613; J7614; J7626; J7644; Q0144